=== PATIENT | female | born 1965 | race Caucasian/White ===

== ENCOUNTER 2016-11-17 11:49 | Emergency (ER) | payer MEDICARE, MEDICAID ==
[2016-11-17 12:24] LABS: #Eosinphils 0.2 thou/uL (0.0-0.7); #Lymphocytes 1.1 thou/uL (1.20-3.40); #Monocytes 0.4 thou/uL (0.11-0.59); #Neutrophils 2.7 thou/uL (1.40-6.50); %Basophils 0.5 % (0.0-1.0); %Eosinophils 5.3 % (0.0-10.0); %Lymphocytes 24.9 % (21.0-51.0); %Monocytes 9.7 % (0.0-10.0); Hematocrit 35.2 % (36.0-47.0); Mean Platelet Volume 7.9 fL (7.4-10.4); Red Blood Cell (RBC) Count 4.17 mill/uL (4.20-5.40); White Blood Cell (WBC) Count 4.5 thou/uL (4.8-10.8)
[2016-11-17 12:50] LABS: ALT (SGPT) Less than 7 U/L (8-55); AST (SGOT) 11 U/L (5-34); Alkaline Phosphatase 85 U/L (40-150); Anion Gap 12 mmol/L (10-20); BUN (Urea Nitrogen) 9 mg/dL (9.8-20.1); Bilirubin, Total 0.3 mg/dL (0.2-1.2); CK (CPK) 61 U/L (29-168); Calc. Creatinine Clearance 0 mL/min (70-130); Calcium 8.7 mg/dL (7.8-10.44); Carbon Dioxide 27 mmol/L (22-29); Chloride 103 mmol/L (98-107); Estimated GFR-MDRD 42; Globulin 3.5 g/dL (2.4-3.5)
--- NOTE | 2016-11-17 12:52 | RAD ---
AP VIEW OF THE CHEST: INDICATION: Syncope. COMPARISON: Prior exam dated 09/01/14. FINDINGS: There is slight elevation of the right hemidiaphragm. The heart size is mildly prominent. Pulmonar y vasculature is within normal limits. No airspace consolidation, pleural effusion, or pneumothorax is evident. There is an ACDF now present involving the cervical spine. IMPRESSION: No acute cardiopulmonary abnormality. POS: [facility]
[2016-11-17 12:54] LABS: Troponin I Less than 0.010 ng/mL (< 0.028)
--- NOTE | 2016-11-17 12:54 | RAD ---
THREE VIEWS OF THE LEFT HAND: INDICATION: Left hand pain. FINDINGS: There are scattered subchondral cyst-like abnormalities involving the wrist carpus. There is mild d egenerative change involving the 1st CMC with associated subchondral cyst-like abnormalities in the trapezium as well as the base of the thumb metacarpal. No acute fracture or subluxation is evident. Soft tissues are normal-appearing. IMPRESSION: No acute osseous abnormality. POS: [facility]
== END 2016-11-17 14:26 | disposition home or self-care (01) ==
LOC: ERS 11:49
DX: M79.645 Pain in left finger(s) (principal); W17.89XA Other fall from one level to another, initial encounter
CPT/HCPCS: 36415; 71010; 80053; 82550; 82553; 84484; 85025; 93005; 94760

== ENCOUNTER 2017-04-24 12:10 | Outpatient (CLI) | payer MEDICARE, MEDICAID | END 2017-04-24 12:11 | disposition home or self-care (01) | LOC: BICMAMMO 12:10 | PROVIDERS: ATTEND Family Medicine | DX: Z12.31 Encounter for screening mammogram for malignant neoplasm of breast (principal); N64.89 Other specified disorders of breast; Z80.3 Family history of malignant neoplasm of breast | CPT/HCPCS: 77063; 77067 ==

== ENCOUNTER 2017-05-18 12:53 | Outpatient (CLI) | payer MEDICARE, MEDICAID ==
[2017-05-18] MEDS ORDERED: Gadobenate Dimeglumine 529 MG/1 ML (20ML VIAL) ONE (14:36)
== END 2017-05-18 12:54 | disposition home or self-care (01) ==
LOC: BICMRI 12:53
PROVIDERS: ATTEND Psychiatry & Neurology Neurology
DX: R42 Dizziness and giddiness; M99.83 Other biomechanical lesions of lumbar region; M54.2 Cervicalgia; M47.26 Other spondylosis with radiculopathy, lumbar region
CPT/HCPCS: 70553; 72040; 72110; 72148; A9579

== ENCOUNTER 2017-05-25 15:43 | Outpatient (CLI) | payer MEDICARE, MEDICAID | END 2017-05-25 15:44 | disposition home or self-care (01) | LOC: BICULT 15:43 | PROVIDERS: ATTEND Internal Medicine Nephrology | DX: I12.9 Hypertensive chronic kidney disease with stage 1 through stage 4 chronic kidney disease, or unspecified chronic kidney disease (principal); N18.3 Chronic kidney disease, stage 3 (moderate) | CPT/HCPCS: 76770 ==

== ENCOUNTER 2017-07-01 16:40 | Emergency (ER) | payer MEDICARE, OTHER ==
[~2017-07-01 16:40] MED LIST: ISOVUE-370 76%-LOCM 1 ML ONE
[2017-07-01 18:16] LABS: #Eosinphils 0.3 thou/uL (0.0-0.7); #Lymphocytes 0.9 thou/uL (1.20-3.40); #Monocytes 0.5 thou/uL (0.11-0.59); #Neutrophils 3.5 thou/uL (1.40-6.50); %Basophils 0.8 % (0.0-1.0); %Eosinophils 6.4 % (0.0-10.0); %Lymphocytes 16.7 % (21.0-51.0); %Monocytes 9.4 % (0.0-10.0); %Neutrophils 66.8 % (42.0-75.0); Hemoglobin 10.4 g/dL (12.0-16.0); Mean Corpuscular HGB CONC 30.9 g/dL (32.0-36.0); Mean Corpuscular Hemoglobin 26.3 pg (27.0-31.0); Mean Corpuscular Volume 84.9 fl (81.0-99.0); Platelet Count 257 thou/uL (130-400); RBC Distribution Width 13.2 % (11.5-14.5); Red Blood Cell (RBC) Count 3.96 mill/uL (4.20-5.40); White Blood Cell (WBC) Count 5.2 thou/uL (4.8-10.8)
[2017-07-01 18:37] LABS: ALT (SGPT) 8 U/L (8-55); AST (SGOT) 18 U/L (5-34); Albumin 3.6 g/dL (3.5-5.0); Alkaline Phosphatase 77 U/L (40-150); Anion Gap 11 mmol/L (10-20); BUN (Urea Nitrogen) 13 mg/dL (9.8-20.1); Bilirubin, Total 0.2 mg/dL (0.2-1.2); CK (CPK) 197 U/L (29-168); Calc. Creatinine Clearance 0 mL/min (70-130); Calcium 8.9 mg/dL (7.8-10.44); Carbon Dioxide 28 mmol/L (22-29); Chloride 105 mmol/L (98-107); Estimated GFR-MDRD 39; Globulin 3.3 g/dL (2.4-3.5); Glucose 99 mg/dL (70-105); Lipase 17 U/L (8-78); Magnesium 1.7 mg/dL (1.6-2.6); Potassium 4.1 mmol/L (3.5-5.1); Protein, Total 6.9 g/dL (6.0-8.3); Sodium 140 mmol/L (136-145)
[2017-07-01 18:41] LABS: CKMB 2.5 ng/mL (0-6.6); Troponin I Less than 0.010 ng/mL (< 0.028)
--- NOTE | 2017-07-01 19:24 | ULT ---
LEFT UPPER EXTREMITY VENOUS ULTRASOUND: 07/01/17 HISTORY: Left upper extremity edema. TECHNIQUE: Multiplanar aburto scale and color doppler images were obtained in a left upper extremity venous ultras ound. Spectral analysis of the doppler waveforms were performed. FINDINGS: The left internal jugular vein demonstrates normal compression and flow without evidence of thrombus. The left subclavian vein demonstrates normal flow and augmentation without evidence of thrombus. The left axillary and brachial veins demonstrate normal compression, flow and augmentation without evide nce of thrombus. The venous structures distal to the elbow are unremarkable. The basilic and cephalic veins are patent . IMPRESSION: No evidence of left upper extremity DVT. POS: [facility]
--- NOTE | 2017-07-01 19:29 | RAD ---
PORTABLE CHEST: 07/01/17 HISTORY: Swelling and shortness of breath. COMPARISON: 11/17/16 exam. Heart size is within normal limits for portable technique. There are atherosclerotic changes of the a wilber. There is some increased density over the right base. I am not certain if this is related to ove rlying soft tissue or possibly some atelectasis or infiltrative change. A PA and lateral chest film w ould be helpful in assessment. IMPRESSION: Slight increased density over the right lung base possibly atelectasis or infiltrate versus overlying soft tissue. POS: [facility]
--- NOTE | 2017-07-01 21:16 | CT ---
CT ANGIO OF CHEST PERFORMED WITH INTRAVENOUS CONTRAST ENHANCEMENT WITH 3D RECONSTRUCTIONS: 07/01/17 HISTORY: Shortness of breath. Elevated D-dimer. The lungs are clear of any infiltrative process. There is no pulmonary nodules identified. There is no significant mediastinal or hilar adenopathy. The thoracic aorta is normal in caliber. There is fair pulmonary artery opacification, peripheral emb tanika are not excluded but no CT evidence for pulmonary embolus. The visualized liver parenchyma shows no focal findings. IMPRESSION: No CT evidence of pulmonary embolus. POS: [facility]
[2017-07-01 21:19] LABS: Bilirubin Negative (Negative); Blood, Urine Negative (Negative); Clarity CLEAR (Clear); Glucose, Urine (Dipstick) Negative (Negative); Leukocyte Moderate (Negative); Nitrite Negative (Negative); Protein, Urine (Dipstick) Negative (Neg-Trace); Specific Gravity, Urine 1.016 (1.002-1.036); Urobilinogen 0.2 mg/dL (0.2-1.0)
[2017-07-01 21:21] LABS: Bacteria/HPF None Seen HPF (None Seen); Hyaline Casts/LPF 0-3 HYALINE CAST LPF (0-3 Hyaline); Pathc Cast-AUWi Flag 0.14 (0-2.49); RBC/HPF 0-3 HPF (0-3); Squamous Epithelial 0-3 HPF (0-3)
--- NOTE | 2017-07-01 22:43 | CT ---
CT OF ABDOMEN AND PELVIS PERFORMED WITH INTRAVENOUS CONTRAST ENHANCEMENT: 07/01/17 HISTORY: Abdominal pain and left flank region. COMPARISON: A 03/12/15 CT examination. The lung bases are clear of any infiltrative process. The liver, spleen, pancreas, and gallbladder regions all appear unremarkable. Right and left adrenal glands are normal in appearance. The right kidney is normal in size and appear ance. There is cortical thinning involving the mid and lower pole region of the left kidney and dilat ation to the left renal pelvis and collecting system. The patient reportedly has undergone a previous pyeloplasty. The ureter is nondilated and no ureteral calculus is seen. There is no significant zuri aortic or mesenteric adenopathy. There is a moderate amount of stool present within the colon. CT OF PELVIS PERFORMED WITH CONTRAST ENHANCEMENT: The appendix region appears unremarkable. There is no evidence of adenopathy or mass. No evidence of any significant free fluid. There are arthritic changes of the spine. IMPRESSION: 1. No acute abnormalities to the abdomen or pelvis. 2. Cortical thinning involving the left kidney with prominent left renal pelvis. Patient reporte terri has undergone a previous pyeloplasty on the left. These changes appear fairly similar to previous studies. POS: [facility]
== END 2017-07-01 21:53 | disposition home or self-care (01) ==
LOC: ERS 16:40
DX: N39.0 Urinary tract infection, site not specified (principal); F41.9 Anxiety disorder, unspecified; F31.9 Bipolar disorder, unspecified; M19.90 Unspecified osteoarthritis, unspecified site; Z79.899 Other long term (current) drug therapy; Z87.442 Personal history of urinary calculi
CPT/HCPCS: 71045; 71275; 74177; 80053; 81003; 81015; 82553; 83605; 83690; 83735; 83880; 84484; 85025; 85379; 93005

== ENCOUNTER 2017-07-06 14:19 | Outpatient (CLI) | payer MEDICARE, MEDICAID ==
[~2017-07-06 14:19] MED LIST changes: +Gadobenate Dimeglumine 529 MG/1 ML (20ML VIAL) ONE; -ISOVUE-370 76%-LOCM 1 ML ONE
--- NOTE | 2017-07-06 16:57 | MRI ---
MRI LUMBAR SPINE WITH AND WITHOUT CONTRAST: HISTORY: Chronic neck pain and shoulder pain. Prior cervical spine surgery. COMPARISON: Plain films and CT cervical spine dated May 2015. TECHNIQUE: Multiplanar, multisequential imaging of the cervical spine obtained. Post contrast images were obtai lyn after administering 20 mL of MultiHance IV. FINDINGS: The exam is severely degraded due to motion artifact on all sequences. There are pedicle screws now in place with an anterior plate transfixing the C3, C4, C5, and C6 level s. The cervical vertebrae maintain height and alignment. Artifact from the metallic appliances degr ades evaluation of the spinal canal. Evidence of posterior spondylosis at C3-C4, C4-C5, and C5-C6 ef face the anterior subarachnoid space. No significant cord impingement. No evidence of foraminal oral nosis. At C6-C7, posterior disk bulge and spondylosis efface the anterior subarachnoid space, slightly more pronounced to the left of midline. Mild foraminal encroachment due to uncinate hypertrophy. No abnormal enhancement. Cord appears normal. IMPRESSION: 1. Postoperative change noted with anterior plate and screws at the C3, C4, C5, and C6 levels. Ther e is effacement of the anterior subarachnoid space throughout these levels without significant cord i mpingement of foraminal stenosis. 2. Spondylosis at C6-C7, as described above. POS: [facility]
--- NOTE | 2017-07-06 16:59 | RAD ---
LUMBAR SPINE FOUR VIEWS: 07/06/2017 HISTORY: Chronic back pain. FINDINGS: There are five [id number]-hhy-lyxchzp lumbar-type vertebral bodies. There is slight grade 1 anterolisthesis of L4 on L5.. There is narrowing of the intervertebral disk spaces at all levels of the lumbar spin e. The vertebral body heights are within normal limits. Scattered osteophytes are present. Facet d egenerative changes are seen, predominantly in the lower lumbar spine. No fracture is present. Ther e is no abnormal translation motion seen between the flexion and extension views. IMPRESSION: Multilevel degenerative changes of the lumbar spine with grade 1 anterolisthesis of L4 on L5. POS: [facility]
--- NOTE | 2017-07-06 17:14 | RAD ---
CERVICAL SPINE SIX VIEWS: TECHNIQUE: Lateral views were obtained with neutral flexion and extension positions. FINDINGS: Anterior plate and screws transfix C3, C4, C5, and C6. Interbody implants are present. Posterior sp ondylitic changes are prominent at the C5-C6 and at the C6-C7 levels. No significant listhesis noted with flexion or extension. IMPRESSION: Postoperative and degenerative changes of the cervical spine noted. POS: [facility]
--- NOTE | 2017-07-06 17:16 | CT ---
CT CERVICAL SPINE: HISTORY: Chronic neck and shoulder pain (M54.12 and M54.16). TECHNIQUE: Axial images are obtained with coronal and sagittal reconstructions. FINDINGS: CT images demonstrate ACDF with fusion of the C3, C4, C5, and C6 vertebrae. There are some anterior osteophytes seen at the C6-C7 disk space. The central canal and neural foramen are patent. Some cameron tral canal stenosis is seen due to posterior osteophytes at the C5-C6 and C6-C7 levels, extending int o the spinal canal. Correlation with CT myelography may be of use to further characterize. IMPRESSION: Cervical spine fusion changes with lower cervical region disk degenerative changes, just below the le glenny of the cervical spine fusion. POS: [facility]
== END 2017-07-06 14:20 | disposition home or self-care (01) ==
LOC: SCSMRI 14:19
PROVIDERS: ATTEND Surgery
DX: M47.22 Other spondylosis with radiculopathy, cervical region (principal); M47.26 Other spondylosis with radiculopathy, lumbar region; Z98.1 Arthrodesis status; M43.16 Spondylolisthesis, lumbar region
CPT/HCPCS: 72050; 72120; 72125; 72156; A9579

== ENCOUNTER 2017-07-10 19:00 | Outpatient (CLI) | payer MEDICARE, MEDICAID | END 2017-07-10 19:01 | disposition home or self-care (01) | LOC: SLEEPLAB 19:00 | PROVIDERS: ATTEND Family Medicine | DX: Z02.9 Encounter for administrative examinations, unspecified (principal); G47.33 Obstructive sleep apnea (adult) (pediatric); R09.02 Hypoxemia; R06.83 Snoring; G89.29 Other chronic pain; F32.9 Major depressive disorder, single episode, unspecified; F41.9 Anxiety disorder, unspecified; F20.9 Schizophrenia, unspecified | CPT/HCPCS: 95810 ==

== ENCOUNTER 2017-08-21 14:04 | Outpatient (CLI) | payer MEDICARE, MEDICAID ==
--- NOTE | 2017-08-21 15:27 | RAD ---
TWO VIEW CHEST: HISTORY: Dyspnea. FINDINGS: The lung simmons appear clear. No infiltrate or vascular congestion. Heart and mediastinum unremarka ble. IMPRESSION: No acute abnormality. POS: [facility]
== END 2017-08-21 14:05 | disposition home or self-care (01) ==
LOC: RAD 14:04
PROVIDERS: ATTEND Internal Medicine Pulmonary Disease
DX: R06.00 Dyspnea, unspecified (principal)
CPT/HCPCS: 71046

== ENCOUNTER 2018-02-24 09:55 | Outpatient (CLI) | payer MEDICARE, MEDICAID ==
--- NOTE | 2018-02-24 15:52 | NM ---
TRIPLE PHASE BONE SCAN: History: Left knee pain. Dose: 30.3 mCi Technetium 99M MDP. FINDINGS: Triple phase bone scan of the knee is performed as well as delayed whole body images. No evidence of increased flow is seen. The blood pool images are unremarkable. No definite evidence of areas of increased activity seen in the knees to suggest significant increase d metabolic activity. There is increased activity seen in the left sacrum. This may represent a left sacral lesion or fracture. Correlate with MRI and clinical correlation. The rest of the bone scan who le body images are unremarkable. IMPRESSION: Increased left sacral metabolic activity. This may represent a sacral fracture. Correlate with MRI. POS: [facility]
== END 2018-02-24 09:56 | disposition home or self-care (01) ==
LOC: NM 09:55
PROVIDERS: ATTEND Specialist
DX: M17.11 Unilateral primary osteoarthritis, right knee (principal); T84.84XA Pain due to internal orthopedic prosthetic devices, implants and grafts, initial encounter; R93.7 Abnormal findings on diagnostic imaging of other parts of musculoskeletal system; Z96.651 Presence of right artificial knee joint
CPT/HCPCS: 78315; A9503

== ENCOUNTER 2018-06-25 12:51 | Outpatient (CLI) | payer MEDICARE, MEDICAID ==
--- NOTE | 2018-06-25 16:01 | MMO ---
Bilateral MAMMO Bilat Screen DDI+DEWEY. CLINICAL HISTORY: Patient is 53 years old and is seen for screening. The patient has the following family history of breast cancer: maternal aunt. The patient has no personal history of cancer. VIEWS: The views performed were: bilateral craniocaudal; bilateral craniocaudal with tomosynthesis; bilateral mediolateral oblique; and bilateral mediolateral oblique with tomosynthesis. FILMS COMPARED: The present examination has been compared to prior imaging studies performed at [facility] on 01/02/2014 and 04/24/2017, and at [facility] on 10/29/2011. MAMMOGRAM FINDINGS: There are scattered fibroglandular densities. There are no suspicious masses, suspicious calcifications, or new areas of architectural distortion. IMPRESSION: THERE IS NO MAMMOGRAPHIC EVIDENCE OF MALIGNANCY. A ROUTINE FOLLOW-UP MAMMOGRAM IN 1 YEAR IS RECOMMENDED. THE RESULTS OF THIS EXAM WERE SENT TO THE PATIENT. ACR BI-RADS Category 1 - Negative MAMMOGRAPHY NOTE: 1. A negative mammogram report should not delay a biopsy if a dominant of clinically suspicious mass is present. 2. Approximately 10% to 15% of breast cancers are not detected by mammography. 3. Adenosis and dense breasts may obscure an underlying neoplasm.
== END 2018-06-25 12:52 | disposition home or self-care (01) ==
LOC: BICMAMMO 12:51
PROVIDERS: ATTEND Family Medicine
DX: Z12.31 Encounter for screening mammogram for malignant neoplasm of breast (principal); Z80.3 Family history of malignant neoplasm of breast
CPT/HCPCS: 77063; 77067

== ENCOUNTER 2018-07-05 07:44 | Outpatient (CLI) | payer MEDICARE, MEDICAID ==
[2018-07-05] MEDS ORDERED: Iopamidol 370 76% 100 ML VIAL ONE (09:00)
--- NOTE | 2018-07-05 15:12 | CT ---
CT ABDOMEN AND PELVIS WITH ORAL AND IV CONTRAST: HISTORY: Abdominal pain. COMPARISON: 07/01/2017 FINDINGS: The lung bases are clear. The liver, spleen, pancreas, adrenal glands, and right kidney are normal. Cortical thinning involving the left kidney with changes of pyeloplasty resulting in dilatation of t he left renal pelvis and collecting system again seen. No calculi are seen in the ureters or in the urinary bladder. No hydroureteronephrosis is seen. No free air, free fluid, or lymphadenopathy is noted in the abdomen or pelvis. No calcified gallston es are seen. The small bowel loops are not abnormally dilated. A uterus is present. There is no evidence of aneu rysmal dilatation of the abdominal aorta. There are degenerative changes in the spine. IMPRESSION: Stable examination. No acute process. POS: [facility]
== END 2018-07-05 07:45 | disposition home or self-care (01) ==
LOC: SCSCT 07:44
PROVIDERS: ATTEND Surgery
DX: R10.11 Right upper quadrant pain (principal)
CPT/HCPCS: 74177; 82565

== ENCOUNTER 2019-02-25 09:43 | Outpatient (CLI) | payer MEDICARE, MEDICAID ==
--- NOTE | 2019-02-25 13:55 | NM ---
WHOLE BODY BONE SCAN WITH TRIPLE PHASE IMAGING OF THE KNEES: HISTORY: Right knee replacement in 2013 and left knee replacement in 2017. Pain due to internal orthopedic pro sthetic device/graft. Pain in both knees, right greater than left. No history of malignancy. RADIOPHARMACEUTICAL: Technetium 99m MDP 32.4 millicuries injected intravenously. FINDINGS: No increased blood flow or blood pooling is seen in the knee joints on either side. Delayed images de monstrate mildly increased uptake consistent with postop changes. There are foci of intense uptake in the mandible, likely due to periodontal disease. Increased uptake in the mid thoracic spine corresponds to degenerative changes noted on the CT scan o f the chest dated 07/01/2017. Increased uptake in the left L5-S1 and inferior left SI joint also sidney esponds to degenerative changes noted on the CT scan of the abdomen and pelvis of 01/23/2019. Increased uptake in the shoulders and ankles is consistent with degenerative changes. Tracer excretio n through the kidneys is within normal limits. IMPRESSION: No evidence of infection or loosening in either knee prostheses. POS: [facility]
== END 2019-02-25 09:44 | disposition home or self-care (01) ==
LOC: NM 09:43
PROVIDERS: ATTEND Specialist
DX: T84.84XA Pain due to internal orthopedic prosthetic devices, implants and grafts, initial encounter (principal)
CPT/HCPCS: 78315; A9503

== ENCOUNTER 2019-08-16 07:47 | Outpatient (CLI) | payer MEDICARE, MEDICAID ==
--- NOTE | 2019-08-16 09:14 | MRI ---
EXAM: MR of the right thumb without IV contrast DATE: 08/16/2019 INDICATION: History of right thumb dislocation and pain for many months. COMPARISON: None. FINDING: There is a subchondral cystlike abnormality involving the dorsal aspect of the thumb metaca rpal base. The capsular ligaments at the thumb metacarpal base appear intact. The collateral ligaments of the thumb MCP joint and IP joint appear intact. There is some slight increased T2 signal seen involving the proximal attachment of the ulnar collateral ligament to the thumb metacarpal head. The extensor and flexor tendons to the right thumb appear intact. The abductor pollicis tendon appears within normal limits. There is some soft tissue swelling of the dorsal aspect of the hand which is nonspecific. IMPRESSION: 1. Grade 1 sprain involving the proximal attachment of the ulnar collateral ligament of the thumb met acarpal phalangeal joint. 2. Mild first CMC osteoarthrosis.
== END 2019-08-16 07:48 | disposition home or self-care (01) ==
LOC: SCSMRI 07:47
PROVIDERS: ATTEND Orthopaedic Surgery Hand Surgery
DX: S63.104A Unspecified dislocation of right thumb, initial encounter (principal); S53.31XA Traumatic rupture of right ulnar collateral ligament, initial encounter; S63.641A Sprain of metacarpophalangeal joint of right thumb, initial encounter; M18.11 Unilateral primary osteoarthritis of first carpometacarpal joint, right hand

== ENCOUNTER 2019-12-13 09:00 | Outpatient (CLI) | payer MEDICARE, MEDICAID, OTHER ==
[2019-12-13 11:34] LABS: #Basophils 0.1 thou/uL (0.0-0.2); #Eosinphils 0.3 thou/uL (0.0-0.7); #Lymphocytes 1.4 thou/uL (1.20-3.40); #Monocytes 0.7 thou/uL (0.11-0.59); #Neutrophils 4.6 thou/uL (1.40-6.50); %Basophils 0.8 % (0.0-1.0); %Eosinophils 4.8 % (0.0-10.0); %Monocytes 9.6 % (0.0-10.0); %Neutrophils 64.9 % (42.0-75.0); Mean Corpuscular HGB CONC 31.3 g/dL (32.0-36.0); Mean Corpuscular Hemoglobin 29.1 pg (27.0-31.0); Mean Corpuscular Volume 92.9 fL (78.0-98.0); Mean Platelet Volume 8.2 fL (7.4-10.4); Platelet Count 277 thou/uL (130-400); RBC Distribution Width 13.5 % (11.5-14.5); Red Blood Cell (RBC) Count 4.81 mill/uL (4.20-5.40); White Blood Cell (WBC) Count 7.1 thou/uL (4.8-10.8)
[2019-12-13 11:53] LABS: Bilirubin Negative (Negative); Blood, Urine Negative (Negative); Calcium Oxalate Crystals 4+ HPF (None Seen); Clarity Turbid (Clear); Glucose, Urine (Dipstick) Normal (Negative); Ketone, Urine Trace mg/dL (Negative); Leukocyte 500 Leu/uL (Negative); Nitrite Negative (Negative); Protein, Urine (Dipstick) 50 mg/dL (Neg-Trace); Renal Epithelial 0-3 HPF (None Seen); Specific Gravity, Urine 1.036 (1.002-1.036); Transitional Epithelial 0-3 HPF (None Seen); Urobilinogen Normal mg/dL (Less than 2); WBC/HPF Greater than 50 HPF (0-3); pH, Urine 5.5 (5.0-9.0)
[2019-12-13 12:00] LABS: Bacteria/HPF None Seen HPF (None Seen)
[2019-12-13 12:43] LABS: Anion Gap 17 mmol/L (10-20); BUN (Urea Nitrogen) 15 mg/dL (9.8-20.1); Calc. Creatinine Clearance 0 mL/min (70-130); Calcium 10.6 mg/dL (7.8-10.44); Carbon Dioxide 24 mmol/L (22-29); Chloride 101 mmol/L (98-107); Estimated GFR-MDRD 34; Glucose 110 mg/dL (70-105); Potassium 3.8 mmol/L (3.5-5.1); Sodium 138 mmol/L (136-145)
--- NOTE | 2019-12-13 15:02 | EKG ---
Test Reason : Blood Pressure : / mmHG Vent. Rate : 086 BPM Atrial Rate : 086 BPM P-R Int : 148 ms QRS Dur : 090 ms QT Int : 340 ms P-R-T Axes : 030 060 088 degrees QTc Int : 406 ms Normal sinus rhythm Normal ECG No previous ECGs available Confirmed by TABITHA MEJÍA (2) on 12/13/2019 3:01:44 PM Referred By: MARIANELA Confirmed By:TABITHA MEJÍA
[2019-12-13 17:29] LABS: SARS-CoV-2 MS2 Positive; SARS-CoV-2 N Gene Negative; SARS-CoV-2 S Gene Negative; SARS-CoV-2 by NAA Not Detected (NotDetected); SARS-CoV-2 orf1ab Negative
== END 2019-12-13 09:01 | disposition home or self-care (01) ==
LOC: LABBT 09:00
PROVIDERS: ATTEND Orthopaedic Surgery Hand Surgery
DX: Z01.818 Encounter for other preprocedural examination (principal); Z20.828 Contact with and (suspected) exposure to other viral communicable diseases; M18.11 Unilateral primary osteoarthritis of first carpometacarpal joint, right hand
CPT/HCPCS: 80048; 81001; 85025; 93005; U0003; 87635; 93010

== ENCOUNTER 2019-12-16 08:45 | Day surgery (SDC) | payer MEDICARE, MEDICAID ==
[2019-12-15 14:46] VITALS: BMI 44.6
[2019-12-16] MEDS ORDERED: PHENYLEPHRINE-NS 100 MCG/ML 10 ML SYRINGE ONE (10:09)
[2019-12-16] MEDS ORDERED: Lidocaine 1% PF 5 ML VIAL ONE (10:09)
[2019-12-16] MEDS ORDERED: Dexamethasone 20 MG/5 ML VIAL ONE (10:09)
[2019-12-16] MEDS ORDERED: Ondansetron PF 4 MG/2 ML Vial ONE (10:09)
[2019-12-16] MEDS ORDERED: PROPOFOL 200 MG/20 ML VIAL ONE (10:09)
[2019-12-16] MEDS ORDERED: Bupivacaine HCl 0.5%/Epinephrine 1:200,000/PF 30 ml Vial ONE (10:09)
[2019-12-16] MEDS ORDERED: Glycopyrrolate 0.2 MG/ML 5 ML SYRINGE ONE (10:09)
[2019-12-16] MEDS ORDERED: EPHEDRINE 25 MG/5 ML SYRINGE ONE (10:09)
[2019-12-16] MEDS ORDERED: Ketorolac Tromethamine 30 MG/ML VIAL ONE (10:09)
[2019-12-16] MEDS ORDERED: Midazolam HCl 2 mg/2 ml Vial ONE (10:37)
[2019-12-16] MEDS ORDERED: Fentanyl 100 MCG/2 ML VIAL ONE ×4 (10:37→15:28)
[2019-12-16 12:01] LABS: Bacteria/HPF None Seen HPF (None Seen); Bilirubin Negative (Negative); Blood, Urine Negative (Negative); Clarity Clear (Clear); Glucose, Urine (Dipstick) Normal (Negative); Ketone, Urine Negative (Negative); Leukocyte 25 Leu/uL (Negative); Nitrite Negative (Negative); Protein, Urine (Dipstick) 50 mg/dL (Neg-Trace); RBC/HPF 0-3 HPF (0-3); Specific Gravity, Urine 1.038 (1.002-1.036); Squamous Epithelial 0-3 HPF (0-3); Urobilinogen Normal mg/dL (Less than 2); WBC/HPF 0-3 HPF (0-3)
[2019-12-16] MEDS ORDERED: Neomycin-Polymyxin 1 ML AMP ONE (12:18)
[2019-12-16] MEDS ORDERED: Bacitracin Zinc Ointment 30 gm TUBE ONE (12:18)
[2019-12-16] MEDS ORDERED: Bupivacaine PF 0.5% 30 ML VIAL ONE (12:18)
[2019-12-16] MEDS ORDERED: HYDROmorphone 2 MG/ML VIAL ONE (14:08)
--- NOTE | 2019-12-16 14:46 | RAD ---
Right wrist 2 views intraoperative fluoroscopy HISTORY: Intraoperative fluoroscopy was provided for operative fixation as performed by Dr. Guevara. 2 spot fluoroscopic images show long K wire to transfix the bases of the first and second metacarpals. Trapezium not visualized. Perhaps a faint prosthesis present.
--- NOTE | 2019-12-18 09:22 | OP ---
DATE OF PROCEDURE: 12/16/2019 PREOPERATIVE DIAGNOSIS: Right thumb carpometacarpal osteoarthritis. POSTOPERATIVE DIAGNOSIS: Right thumb carpometacarpal osteoarthritis. FINDINGS: Greater than 80% complete loss of chondral surface with osteophytes on both sides of the joint. PROCEDURE PERFORMED: 1. Right thumb CMC ligament replacement, tendon position. 2. Flexor carpi radialis transfer, right first to second metacarpal. 3. C-arm supervision. SPECIMEN REMOVED: Trapezium, but not sent to the lab. ESTIMATED BLOOD LOSS: 20 mL. TOURNIQUET TIME: 83 minutes. DESCRIPTION OF PROCEDURE: After successful general endotracheal anesthesia, the limb was prepped and draped. The patient also had a block, which was before the procedure began. Thus, we did not give local Marcaine. With time-out completed, the limb was exsanguinated, tourniquet was inflated to 250 mmHg pressure, made a curvilinear incision beginning retirement between the thumb MP joint and CMC and curved along the volar wrist flexion crease to the level of the radial aspect of the FCR tendon. We carried this through skin and subcutaneous tissue and developed nerves plane, sparing all superficial radial nerve branches. We then identified the interval between the extensor brevis and the abductor pollicis longus, developed this, and then made arthrotomy. We preserved the joint flaps and into the fascia of the muscles. 360 degrees circumferentially beginning radially, dissected the trapezium free, found the flexor carpi radialis tendon and freed it from the palmar aspect completely, then released the scaphotrapezial joint as well as the trapezium and trapezoid. Then, we elevated out the completely denuded trapezium, saw the chondral loss as listed above, placed a heavy deep 3-0 Prolene in the palmar deep capsule for later suturing of the FCR remnant and prepared for . The thumb was rotated so that the nailbed was now parallel with the palm, we found the lateral border of the base of the thumb at 12 mm proximal to the articular surface. After removing all chondral osteophytes, we drilled a cannulated guidewire to the junction of the chondral and subchondral bone, then drilled this with first a 2.7 drill bit and then a 3.5 drill bit. We used a curette to expand the hole. We irrigated the area. We then turned our attention to the harvest of flexor carpi radialis tendon and we made 2 zigzag Ignacio incisions each approximately 2 cm, carried through the skin and subcutaneous tissue at a point from the volar wrist flexion crease retirement to the muscle tendon junction, made a third way to muscular tendon junction, made a first identification of the FCR and we made a second identification at the musculotendinous junction. Here, we released it after identifying, pulled it into the first wound, then dissected the wound and then pulled into the first wound. At which time, we denuded of all this muscle. We easily passed it through the tunnel, holding that with a curved Magallanes tendon Passer, held in appropriate tension, reduced the joint and pinned it x1 with a 0.045 K-wire. We then tied the suture down using standard technique with a Elgin needle with a 3-0 Prolene through an anchovy, we weaved the portion that was tied down deep in the capsule. We released the tourniquet. Hemostasis was obtained. We closed the capsule and the fascia back to the metacarpal base using interrupted 2-0 Vicryl undyed. Then, we closed subcutaneous tissue with hemostasis excellent, and all three wounds using a running 3-0 Monocryl. We used a 4-0 nylon to close the epidermis. Bulky dressing was applied along with a thumb spica splint. The patient left the operating room without evidence of anesthetic or operative complication. Job ID: [id number]
== END 2019-12-16 18:10 | disposition home or self-care (01) ==
LOC: SDC 08:45
PROVIDERS: ATTEND Orthopaedic Surgery Hand Surgery
PROC: 0LX70ZZ Transfer Right Hand Tendon, Open Approach (ICD-10-PCS; principal; 2019-12-16)
PROC: 0LU707Z Supplement Right Hand Tendon with Autologous Tissue Substitute, Open Approach (ICD-10-PCS; 2019-12-16)
PROC: 0RRS07Z Replacement of Right Carpometacarpal Joint with Autologous Tissue Substitute, Open Approach (ICD-10-PCS; 2019-12-16)
PROC: 3E0T3BZ Introduction of Anesthetic Agent into Peripheral Nerves and Plexi, Percutaneous Approach (ICD-10-PCS; 2019-12-16)
DX: M18.11 Unilateral primary osteoarthritis of first carpometacarpal joint, right hand (principal); G89.29 Other chronic pain; M54.9 Dorsalgia, unspecified; F41.9 Anxiety disorder, unspecified; F20.9 Schizophrenia, unspecified; F31.9 Bipolar disorder, unspecified; E66.01 Morbid (severe) obesity due to excess calories; Z68.41 Body mass index [BMI] 40.0-44.9, adult; Z79.82 Long term (current) use of aspirin; Z79.899 Other long term (current) drug therapy; Z87.891 Personal history of nicotine dependence; Z88.5 Allergy status to narcotic agent
CPT/HCPCS: 25310; 25447; 64415; 73100; 76000; 81001; C1713; J0690; J1100; J1170; J1885; J2250; J2405; J2704; J3010; S0020

== ENCOUNTER 2020-04-23 08:52 | Outpatient (CLI) | payer MEDICARE, MEDICAID ==
--- NOTE | 2020-04-23 12:20 | MRI ---
MRI LUMBAR SPINE NONCONTRAST: MRI lumbar spine noncontrast: HISTORY: Lumbar spondylosis. Low back pain, for many years. COMPARISON: None. FINDINGS: There is T1 marrow signal hypointensity with associated T2 marrow signal hypointensity in absence of STIR hyperintensity involving the L2 and L3 vertebral bodies. Sclerosis is favored. There are type II Modic changes at L4-L5 and L5-S1. There are type I Modic changes at T10-T11. No significant STIR hyperintensity to suggest ligamentous injury or vertebral body edema from fractur e. Appropriate signal intensity visualized paraspinal muscles and solid organs. Conus medullaris terminates at the inferior aspect of T12. Based on the sagittal images, there is mild central canal stenosis at T10-T11. No significant stenosi s at T11-T12. T12-L1:Adequate disc hydration. No significant central canal stenosis or significant neural foraminal narrowing. L1-L2:Desiccation with mild loss of disc space height. Broad-based disc bulge, ligament flavum thicke arie and facet hypertrophy result in mild central canal stenosis. Moderate bilateral neural femoral narrowing. L2-L3:Desiccation with moderate loss of disc space height. Broad-based disc bulge, ligament flavum th ickening and facet hypertrophy result in moderate to severe central canal stenosis. Moderate bilateral neural foraminal narrowing. L3-L4:Desiccation with moderate loss of disc space height. Broad-based disc bulge results in mild cameron tral canal stenosis. Encroachment upon bilateral subarticular zones without obscuration of either traversing L4 nerve root. Mild right and moderate left neural foraminal narrowing. L4-L5:Desiccation with moderate loss of disc space height. 3.2 mm of anterolisthesis of L3 upon L4. B road-based disc bulge, ligament flavum thickening and facet hypertrophy result in mild central canal stenosis. There is moderate bilateral facet hypertrophy with fluid in both facet joints. Modera te to severe right and moderate left neural foraminal narrowing. L5-S1:Desiccation with severe loss of disc space height. Broad-based disc bulge abuts the thecal sac. There is bilateral facet hypertrophy. No significant central canal stenosis. Mild right and moderate left foraminal narrowing. IMPRESSION: Multilevel degenerative changes lumbar spine as detailed above. Transcribed Date/Time: 04/23/2020 1:22 PM
== END 2020-04-23 08:53 | disposition home or self-care (01) ==
LOC: BICMRI 08:52
DX: M47.816 Spondylosis without myelopathy or radiculopathy, lumbar region (principal)
CPT/HCPCS: 72148

== ENCOUNTER 2020-08-28 13:25 | Emergency (ER) | payer MEDICARE, MEDICAID ==
[~2020-08-28 13:25] MED LIST changes: -Gadobenate Dimeglumine 529 MG/1 ML (20ML VIAL) ONE; +Iopamidol-370 76% 500 ML 1 ML ONE
[2020-08-28 13:59] LABS: #Eosinphils 0.3 thou/uL (0.0-0.7); #Lymphocytes 1.4 thou/uL (1.20-3.40); #Monocytes 0.7 thou/uL (0.11-0.59); #Neutrophils 5.2 thou/uL (1.40-6.50); %Basophils 0.1 % (0.0-1.0); %Eosinophils 3.4 % (0.0-10.0); %Lymphocytes 18.9 % (21.0-51.0); %Monocytes 8.6 % (0.0-10.0); %Neutrophils 69.1 % (42.0-75.0); Hemoglobin 12.6 g/dL (12.0-16.0); Mean Corpuscular HGB CONC 31.2 g/dL (32.0-36.0); Mean Corpuscular Hemoglobin 28.5 pg (27.0-31.0); Mean Corpuscular Volume 91.5 fL (78.0-98.0); Mean Platelet Volume 7.3 fL (7.4-10.4); Platelet Count 297 thou/uL (130-400); RBC Distribution Width 13.1 % (11.5-14.5); Red Blood Cell (RBC) Count 4.41 mill/uL (4.20-5.40); White Blood Cell (WBC) Count 7.6 thou/uL (4.8-10.8)
[2020-08-28] MEDS ORDERED: Nitroglycerin 0.4 MG TAB 1 EACH ONE (14:08)
[2020-08-28] MEDS ORDERED: Aspirin Chewable 81 MG TAB ONE (14:08)
[2020-08-28 14:23] LABS: ALT (SGPT) 11 U/L (8-55); AST (SGOT) 21 U/L (5-34); Alkaline Phosphatase 67 U/L (40-110); Anion Gap 16 mmol/L (10-20); BUN (Urea Nitrogen) 6 mg/dL (9.8-20.1); Bilirubin, Total 0.4 mg/dL (0.2-1.2); Calc. Creatinine Clearance 0 mL/min (70-130); Calcium 9.5 mg/dL (7.8-10.44); Carbon Dioxide 27 mmol/L (22-29); Chloride 97 mmol/L (98-107); Globulin 3.6 g/dL (2.4-3.5); Glucose 108 mg/dL (70-105); Potassium 3.7 mmol/L (3.5-5.1); Protein, Total 7.6 g/dL (6.0-8.3); Sodium 136 mmol/L (136-145)
[2020-08-28] MEDS ORDERED: HYDROcodone/Acetaminophen 5/325 mg Tablet ONE (15:49)
== END 2020-08-28 18:30 | disposition home or self-care (01) ==
LOC: ERS 13:25
DX: R07.89 Other chest pain (principal); M19.90 Unspecified osteoarthritis, unspecified site; Z87.442 Personal history of urinary calculi
CPT/HCPCS: 36415; 71045; 71275; 80053; 83880; 84484; 85025; 85379; 93005; Q9967

== ENCOUNTER 2020-09-27 14:51 | Inpatient (IN) | payer MEDICARE, MEDICAID ==
[2020-09-27 15:47] LABS: #Eosinphils 0.1 thou/uL (0.0-0.7); #Lymphocytes 0.5 thou/uL (1.20-3.40); #Monocytes 0.6 thou/uL (0.11-0.59); #Neutrophils 3.8 thou/uL (1.40-6.50); %Eosinophils 1.7 % (0.0-10.0); %Lymphocytes 9.1 % (21.0-51.0); %Monocytes 11.9 % (0.0-10.0); %Neutrophils 77.3 % (42.0-75.0); Hemoglobin 12.4 g/dL (12.0-16.0); Mean Corpuscular HGB CONC 32.3 g/dL (32.0-36.0); Mean Corpuscular Hemoglobin 29.2 pg (27.0-31.0); Mean Corpuscular Volume 90.5 fL (78.0-98.0); Mean Platelet Volume 7.5 fL (7.4-10.4); Platelet Count 193 thou/uL (130-400); RBC Distribution Width 13.3 % (11.5-14.5); Red Blood Cell (RBC) Count 4.26 mill/uL (4.20-5.40); White Blood Cell (WBC) Count 4.9 thou/uL (4.8-10.8)
[2020-09-27 16:07] LABS: ALT (SGPT) 10 U/L (8-55); AST (SGOT) 17 U/L (5-34); Albumin 4.3 g/dL (3.5-5.0); Alkaline Phosphatase 75 U/L (40-110); Anion Gap 13 mmol/L (10-20); BUN (Urea Nitrogen) 7 mg/dL (9.8-20.1); Bilirubin, Total 0.3 mg/dL (0.2-1.2); Calc. Creatinine Clearance 0 mL/min (70-130); Calcium 9.5 mg/dL (7.8-10.44); Carbon Dioxide 32 mmol/L (22-29); Chloride 100 mmol/L (98-107); Globulin 3.3 g/dL (2.4-3.5); Glucose 125 mg/dL (70-105); Potassium 3.5 mmol/L (3.5-5.1); Protein, Total 7.6 g/dL (6.0-8.3); Sodium 141 mmol/L (136-145)
[2020-09-27 17:33] LABS: SARS-CoV-2 NAA Rapid Test DETECTED (NotDetected)
[2020-09-27] MEDS ORDERED: Dexamethasone 4 mg/ml Vial ONE (18:37)
[2020-09-27 18:54] LABS: Bilirubin Negative (Negative); Blood, Urine Negative (Negative); Clarity Clear (Clear); Glucose, Urine (Dipstick) Normal (Negative); Ketone, Urine Negative (Negative); Leukocyte Negative Leu/uL (Negative); Nitrite Negative (Negative); Protein, Urine (Dipstick) 10 mg/dL (Neg-Trace); Specific Gravity, Urine 1.048 (1.002-1.036); Urobilinogen Normal mg/dL (Less than 2)
[2020-09-27] MEDS ORDERED: Acetaminophen 325 MG TAB PO PRN (19:02)
[2020-09-27] MEDS ORDERED: Ondansetron ODT 4 MG TAB PO PRN (19:02)
[2020-09-27] MEDS ORDERED: Ondansetron PF 4 MG/2 ML Vial IVP PRN (19:02)
[2020-09-27] MEDS ORDERED: Albuterol Sulfate 1.25 MG/3 ML NEB NEB PRN (20:35)
[2020-09-27] MEDS ORDERED: guaiFENesin 200 MG TAB PO PRN (20:35)
[2020-09-27] MEDS ORDERED: Benzonatate 100 MG CAP PO PRN (20:35)
[2020-09-27] MEDS ORDERED: Enoxaparin Sodium 40 MG/0.4 ML SYRINGE SC SCH (21:00)
[2020-09-27] MEDS ORDERED: Enoxaparin Sodium 60 MG/0.6 ML SYRINGE SC SCH (22:15)
[2020-09-27] MEDS ORDERED: Pharmacy to Dose REMDESIVIR IVPB PRN (22:16)
[2020-09-27] MEDS ORDERED: Dicyclomine 10 MG CAP PO SCH (23:15)
[2020-09-27] MEDS: HYDROcodone/Acetaminophen 10/325 mg Tablet PO PRN (23:19)
[2020-09-27] MEDS: Lactated Ringer's 1,000 ML IV SCH (23:23)
[2020-09-28 00:27] VITALS: BMI 42.5
[2020-09-28 06:07] LABS: #Lymphocytes 0.5 thou/uL (1.20-3.40); #Monocytes 0.2 thou/uL (0.11-0.59); #Neutrophils 2.6 thou/uL (1.40-6.50); %Eosinophils 0.5 % (0.0-10.0); %Lymphocytes 14.2 % (21.0-51.0); %Monocytes 6.1 % (0.0-10.0); %Neutrophils 79.2 % (42.0-75.0); Hemoglobin 12.4 g/dL (12.0-16.0); Mean Corpuscular HGB CONC 32.5 g/dL (32.0-36.0); Mean Corpuscular Volume 89.1 fL (78.0-98.0); Mean Platelet Volume 7.8 fL (7.4-10.4); Platelet Count 168 thou/uL (130-400); Red Blood Cell (RBC) Count 4.27 mill/uL (4.20-5.40); White Blood Cell (WBC) Count 3.2 thou/uL (4.8-10.8)
[2020-09-28 06:29] LABS: ALT (SGPT) 11 U/L (8-55); AST (SGOT) 22 U/L (5-34); Albumin 3.9 g/dL (3.5-5.0); Alkaline Phosphatase 65 U/L (40-110); Anion Gap 13 mmol/L (10-20); BUN (Urea Nitrogen) 8 mg/dL (9.8-20.1); Bilirubin, Total 0.3 mg/dL (0.2-1.2); Calc. Creatinine Clearance 116 mL/min (70-130); Calcium 9.3 mg/dL (7.8-10.44); Carbon Dioxide 25 mmol/L (22-29); Chloride 100 mmol/L (98-107); Globulin 3.6 g/dL (2.4-3.5); Glucose 114 mg/dL (70-105); Protein, Total 7.5 g/dL (6.0-8.3); Sodium 134 mmol/L (136-145)
[2020-09-28] MEDS ORDERED: Albuterol 200 PUFF (6.7GM INHALER) INH PRN (07:06)
[2020-09-28] MEDS: Aspirin 81 mg Enteric Coated Tablet PO SCH (08:46)
[2020-09-28] MEDS: Amlodipine 10 MG TAB PO SCH (08:46)
[2020-09-28] MEDS: Gabapentin 400 MG CAP PO SCH ×3 (08:47→20:30)
[2020-09-28] MEDS: Dicyclomine 10 MG CAP PO SCH ×4 (08:47→20:28)
[2020-09-28] MEDS: DULoxetine 60 MG CAP PO SCH (08:47)
[2020-09-28] MEDS: Methocarbamol 500 MG TAB PO SCH ×2 (08:48→20:29)
[2020-09-28] MEDS: Lactated Ringer's 1,000 ML IV SCH ×3 (08:53→20:28)
[2020-09-28] MEDS ORDERED: Enoxaparin Sodium 60 MG/0.6 ML SYRINGE SC SCH (09:00)
[2020-09-28] MEDS: HYDROcodone/Acetaminophen 10/325 mg Tablet PO PRN ×2 (09:10→16:04)
[2020-09-28] MEDS ORDERED: REMDESIVIR 200 MG in Sodium Chloride 0.9% 250 ML 210 ML IV SCH (11:00)
[2020-09-28] MEDS: Dexamethasone 6 MG in Sodium Chloride 0.9% 50 ML IVPB SCH (11:25)
[2020-09-28 13:15] LABS: Prothrombin Time 13.3 sec (12.0-14.7)
[2020-09-28] MEDS ORDERED: Valbenazine Tosylate [Ingrezza] 40 MG Capsule PO SCH (21:00)
[2020-09-28] MEDS ORDERED: traZODone HCl 50 MG TAB PO SCH (21:00)
[2020-09-28] MEDS ORDERED: rOPINIRole HCl 1 MG TAB PO SCH (21:00)
[2020-09-29] MEDS: Lactated Ringer's 1,000 ML IV SCH (04:08)
[2020-09-29 06:36] LABS: Hemoglobin 12.6 g/dL (12.0-16.0); Mean Corpuscular Hemoglobin 29.4 pg (27.0-31.0); Mean Corpuscular Volume 89.1 fL (78.0-98.0); Mean Platelet Volume 8.4 fL (7.4-10.4); Platelet Count 185 thou/uL (130-400); RBC Distribution Width 13.3 % (11.5-14.5); Red Blood Cell (RBC) Count 4.28 mill/uL (4.20-5.40)
[2020-09-29 06:37] LABS: Band 9 % (5-11); Lymphocytes 19 % (21-51); MDiff Complete? YES; Monocytes 19 % (0-10); Neutrophil 53 % (42-75); Platelet Morphology Comment Appears Adequate
[2020-09-29 06:38] LABS: ALT (SGPT) 19 U/L (8-55); AST (SGOT) 54 U/L (5-34); Albumin 3.7 g/dL (3.5-5.0); Alkaline Phosphatase 68 U/L (40-110); Anion Gap 14 mmol/L (10-20); BUN (Urea Nitrogen) 16 mg/dL (9.8-20.1); Bilirubin, Total 0.2 mg/dL (0.2-1.2); Calc. Creatinine Clearance 120 mL/min (70-130); Calcium 9.2 mg/dL (7.8-10.44); Carbon Dioxide 26 mmol/L (22-29); Chloride 104 mmol/L (98-107); Globulin 3.4 g/dL (2.4-3.5); Glucose 104 mg/dL (70-105); Potassium 3.6 mmol/L (3.5-5.1); Protein, Total 7.1 g/dL (6.0-8.3); Sodium 140 mmol/L (136-145)
[2020-09-29] MEDS: Methocarbamol 500 MG TAB PO SCH (08:44)
[2020-09-29] MEDS: Dexamethasone 6 MG in Sodium Chloride 0.9% 50 ML IVPB SCH (08:44)
[2020-09-29] MEDS: DULoxetine 60 MG CAP PO SCH (08:45)
[2020-09-29] MEDS: Gabapentin 400 MG CAP PO SCH (08:45)
[2020-09-29] MEDS: Aspirin 81 mg Enteric Coated Tablet PO SCH (08:45)
[2020-09-29] MEDS: Amlodipine 10 MG TAB PO SCH (08:46)
[2020-09-29] MEDS: Dicyclomine 10 MG CAP PO SCH ×2 (08:46→13:04)
[2020-09-29] MEDS ORDERED: Enoxaparin Sodium 60 MG/0.6 ML SYRINGE SC SCH (09:00)
[2020-09-29] MEDS ORDERED: REMDESIVIR 100 MG in Sodium Chloride 0.9% 250 ML 230 ML IV SCH (12:00)
[2020-09-29 13:53] VITALS: BP 129/94; TEMP 98.2
[2020-09-30] MEDS ORDERED: Dexamethasone 4 MG TAB PO SCH (08:00)
== END 2020-09-29 15:53 | disposition home or self-care (01) | DRG 177 ==
LOC: ERS 14:51 → T4-A 18:20
PROVIDERS: ADMIT Student in an Organized Health Care Education/Training Program; ATTEND Student in an Organized Health Care Education/Training Program
PROC: 8E0ZXY6 Isolation (ICD-10-PCS; 2020-09-27)
PROC: XW033E5 Introduction of Remdesivir Anti-infective into Peripheral Vein, Percutaneous Approach, New Technology Group 5 (ICD-10-PCS; principal; 2020-09-28)
DX: U07.1 COVID-19 (principal); J12.82 Pneumonia due to coronavirus disease 2019; J96.01 Acute respiratory failure with hypoxia; Z68.41 Body mass index [BMI] 40.0-44.9, adult; J45.909 Unspecified asthma, uncomplicated; N18.31 Chronic kidney disease, stage 3a; I12.9 Hypertensive chronic kidney disease with stage 1 through stage 4 chronic kidney disease, or unspecified chronic kidney disease; F20.9 Schizophrenia, unspecified; G24.01 Drug induced subacute dyskinesia; E66.01 Morbid (severe) obesity due to excess calories; K21.9 Gastro-esophageal reflux disease without esophagitis; G89.29 Other chronic pain; G25.71 Drug induced akathisia; M47.812 Spondylosis without myelopathy or radiculopathy, cervical region; Z28.21 Immunization not carried out because of patient refusal; Z88.5 Allergy status to narcotic agent; Z79.899 Other long term (current) drug therapy; Z79.891 Long term (current) use of opiate analgesic; Z86.19 Personal history of other infectious and parasitic diseases; Z82.49 Family history of ischemic heart disease and other diseases of the circulatory system; Z83.49 Family history of other endocrine, nutritional and metabolic diseases; Z80.3 Family history of malignant neoplasm of breast; Z80.49 Family history of malignant neoplasm of other genital organs; Z80.0 Family history of malignant neoplasm of digestive organs; Z98.1 Arthrodesis status; Z79.82 Long term (current) use of aspirin
CPT/HCPCS: 0240U; 36415; 71045; 71275; 74177; 80053; 81003; 82728; 83605; 83880; 84145; 84484; 85025; 85379; 85610; 86140; 87040; 87086; 93005; 96374; J1100; J1650; J7050; Q9967

== ENCOUNTER 2020-10-06 10:40 | Inpatient (IN) | payer MEDICARE, MEDICAID, OTHER ==
[2020-10-06 11:11] LABS: #Lymphocytes 0.8 thou/uL (1.20-3.40); #Monocytes 0.5 thou/uL (0.11-0.59); #Neutrophils 5.1 thou/uL (1.40-6.50); %Basophils 0.4 % (0.0-1.0); %Eosinophils 0.2 % (0.0-10.0); %Lymphocytes 12.9 % (21.0-51.0); %Monocytes 7.8 % (0.0-10.0); %Neutrophils 78.7 % (42.0-75.0); Hemoglobin 13.6 g/dL (12.0-16.0); Mean Corpuscular Hemoglobin 29.1 pg (27.0-31.0); Mean Corpuscular Volume 88.2 fL (78.0-98.0); Mean Platelet Volume 8.6 fL (7.4-10.4); Platelet Count 144 thou/uL (130-400); RBC Distribution Width 13.5 % (11.5-14.5); Red Blood Cell (RBC) Count 4.66 mill/uL (4.20-5.40); White Blood Cell (WBC) Count 6.5 thou/uL (4.8-10.8)
[2020-10-06] MEDS ORDERED: Propofol 1,000 MG/100 ML VIAL IV ONE ×2 (11:12→14:45)
[2020-10-06 11:19] LABS: Actual Bicarbonate (HCO3a) 22.6 mEq/L (22-28); Analyzer IN Cardio ER; Base Excess (BEa) -1.5 mEq/L (-2.0 to +3.0); CO2 Tension 36.1 mmHg (35.0-45.0); Calcium, Ionized (arterial) 1.08 mmol/L (1.12-1.30); Carboxyhemoglobin (COHb) 0.7 gm% (0.0-3.0); Hemoglobin (Hb) 13.7 g/dL (12.0-16.0); Potassium - ABG Lab 3.08 mmol/L (3.70-5.30); pH, Arterial 7.41 (7.35-7.45)
[2020-10-06 11:20] LABS: Puncture Site LRA
[2020-10-06 11:23] LABS: ALV-art Gradient 612.875 mmHg (0-20)
[2020-10-06 11:24] LABS: ALT (SGPT) 17 U/L (8-55); AST (SGOT) 25 U/L (5-34); Albumin 3.6 g/dL (3.5-5.0); Alkaline Phosphatase 64 U/L (40-110); Anion Gap 12 mmol/L (10-20); BUN (Urea Nitrogen) 16 mg/dL (9.8-20.1); Bilirubin, Total 0.4 mg/dL (0.2-1.2); Calc. Creatinine Clearance 0 mL/min (70-130); Calcium 8.6 mg/dL (7.8-10.44); Carbon Dioxide 27 mmol/L (22-29); Chloride 101 mmol/L (98-107); Globulin 3.8 g/dL (2.4-3.5); Glucose 130 mg/dL (70-105); Potassium 3.1 mmol/L (3.5-5.1); Protein, Total 7.4 g/dL (6.0-8.3); Sodium 137 mmol/L (136-145)
[2020-10-06] MEDS ORDERED: Dexamethasone 10 MG/ML VIAL ONE (11:24)
[2020-10-06] MEDS ORDERED: Fentanyl CADD 100 ML IV SCH (11:30)
[2020-10-06 11:42] LABS: Bilirubin Negative (Negative); Blood, Urine Negative (Negative); Clarity Turbid (Clear); Glucose, Urine (Dipstick) Normal (Negative); Ketone, Urine Negative (Negative); Leukocyte Negative Leu/uL (Negative); Nitrite Negative (Negative); Protein, Urine (Dipstick) 70 mg/dL (Neg-Trace); RBC/HPF 0-3 HPF (0-3); Specific Gravity, Urine 1.025 (1.002-1.036); Squamous Epithelial 0-3 HPF (0-3); Urobilinogen Normal mg/dL (Less than 2); pH, Urine 5.5 (5.0-9.0)
[2020-10-06 11:58] LABS: Bacteria/HPF 1+ HPF (None Seen)
[2020-10-06] MEDS ORDERED: Lorazepam 2 MG/ML VIAL ONE ×3 (12:14→16:30)
[2020-10-06] MEDS ORDERED: Lactated Ringer's 1,000 ML IV SCH ×2 (13:45→17:08)
[2020-10-06] MEDS ORDERED: Acetaminophen 325 MG Suppository PR PRN (13:46)
[2020-10-06] MEDS ORDERED: Electrolyte Replacement Protocol 1 EACH IVPB SCH (13:46)
[2020-10-06] MEDS ORDERED: Ventilator Sedation Protocol 1 EACH FS SCH (14:00)
[2020-10-06] MEDS ORDERED: Fentanyl BOLUS 250 ML IVPB PRN (14:15)
[2020-10-06] MEDS ORDERED: Morphine 2 MG/ML VIAL SLOW IVP PRN (14:15)
[2020-10-06] MEDS ORDERED: DISCONTINUE PREVIOUS NARCOTIC PAIN MEDICATIONS AND BENZODIAZEPINES FS SCH (14:15)
[2020-10-06] MEDS ORDERED: Propofol BOLUS 1,000 MG/100 ML VIAL IV PRN (14:15)
[2020-10-06] MEDS ORDERED: Potassium Chloride 20 MEQ in Premix Bag 1 BAG IVPB SCH (15:00)
[2020-10-06] MEDS ORDERED: Potassium Chloride 20 MEQ/100 ML PREMIX BAG ONE (15:09)
[2020-10-06] MEDS ORDERED: Vecuronium 10 MG VIAL ONE (16:30)
[2020-10-06] MEDS: Lactated Ringer's 1,000 ML IV SCH (16:30)
[2020-10-06 16:56] LABS: Actual Bicarbonate (HCO3a) 24.3 mEq/L (22-28); Base Excess (BEa) 2.6 mEq/L (-2.0 to +3.0); CO2 Tension 29.4 mmHg (35.0-45.0); Calcium, Ionized (arterial) 1.09 mmol/L (1.12-1.30); Carboxyhemoglobin (COHb) 0.5 gm% (0.0-3.0); O2 Tension (PaO2), arterial 90.4 mmHg (80.0-100.0); pH, Arterial 7.54 (7.35-7.45)
[2020-10-06 16:59] LABS: Puncture Site RRA
[2020-10-06] MEDS ORDERED: fentaNYL Citrate/PF 2,000 MCG in Sodium Chloride 0.9% 60 ML IV PRN (17:04)
[2020-10-06] MEDS ORDERED: Vecuronium Bromide 50 MG in Sodium Chloride 0.9% 250 ML 250 ML IV SCH (17:15)
[2020-10-06] MEDS: Propofol 1,000 MG/100 ML VIAL IV PRN ×2 (17:49→20:52)
[2020-10-06] MEDS: Lorazepam 2 MG/ML VIAL SLOW IVP PRN ×2 (18:00→20:06)
[2020-10-06] MEDS ORDERED: Tocilizumab 400 MG in Sodium Chloride 0.9% 80 ML IV SCH ×2 (18:00→20:00)
[2020-10-06 18:12] LABS: Troponin I Less than 0.010 ng/mL (< 0.028)
[2020-10-06] MEDS: Azithromycin 500 MG in Sodium Chloride 0.9% 250 ML 250 ML IVPB SCH (18:12)
[2020-10-06] MEDS: Vecuronium 10 MG VIAL IVP PRN ×2 (18:30→20:16)
[2020-10-06 19:04] LABS: Anion Gap 15 mmol/L (10-20); BUN (Urea Nitrogen) 16 mg/dL (9.8-20.1); Calc. Creatinine Clearance 98 mL/min (70-130); Calcium 8.9 mg/dL (7.8-10.44); Carbon Dioxide 22 mmol/L (22-29); Chloride 106 mmol/L (98-107); Glucose 172 mg/dL (70-105); Magnesium 1.9 mg/dL (1.6-2.6); Potassium 3.8 mmol/L (3.5-5.1); Sodium 139 mmol/L (136-145)
[2020-10-06] MEDS: Cholecalciferol 1,000 UNITS (25 MCG) TAB PO SCH (20:14)
[2020-10-06] MEDS ORDERED: Famotidine/PF 20 mg/2ml Vial SLOW IVP SCH (21:00)
[2020-10-07] LABS: Legionella Urinary Ag Negative (Negative); Strep pneumo Urine Ag NEGATIVE (NEGATIVE)
[2020-10-07] MEDS: Propofol 1,000 MG/100 ML VIAL IV PRN ×3 (01:25→19:44)
[2020-10-07] MEDS: Vecuronium 10 MG VIAL IVP PRN ×2 (01:26→09:27)
[2020-10-07] MEDS: Lactated Ringer's 1,000 ML IV SCH ×4 (02:22→22:45)
[2020-10-07] MEDS ORDERED: Fentanyl CADD 100 ML ONE ×2 (04:03→17:22)
[2020-10-07] MEDS: Fentanyl CADD 100 ML IV SCH ×2 (04:06→17:25)
[2020-10-07 04:40] LABS: Hemoglobin 13.5 g/dL (12.0-16.0); Mean Corpuscular HGB CONC 33.7 g/dL (32.0-36.0); Mean Corpuscular Volume 85.9 fL (78.0-98.0); Mean Platelet Volume 8.6 fL (7.4-10.4); Platelet Count 169 thou/uL (130-400); RBC Distribution Width 13.3 % (11.5-14.5); Red Blood Cell (RBC) Count 4.66 mill/uL (4.20-5.40); White Blood Cell (WBC) Count 3.2 thou/uL (4.8-10.8)
[2020-10-07 04:44] LABS: Phosphorus 2.3 mg/dL (2.3-4.7)
[2020-10-07 04:48] LABS: ALT (SGPT) 14 U/L (8-55); AST (SGOT) 19 U/L (5-34); Albumin 3.4 g/dL (3.5-5.0); Alkaline Phosphatase 60 U/L (40-110); Anion Gap 15 mmol/L (10-20); BUN (Urea Nitrogen) 14 mg/dL (9.8-20.1); Bilirubin, Total 0.5 mg/dL (0.2-1.2); Calc. Creatinine Clearance 135 mL/min (70-130); Calcium 8.8 mg/dL (7.8-10.44); Carbon Dioxide 20 mmol/L (22-29); Chloride 106 mmol/L (98-107); Globulin 3.8 g/dL (2.4-3.5); Glucose 132 mg/dL (70-105); Magnesium 1.8 mg/dL (1.6-2.6); Potassium 3.2 mmol/L (3.5-5.1); Protein, Total 7.2 g/dL (6.0-8.3); Sodium 138 mmol/L (136-145)
[2020-10-07] MEDS ORDERED: Sodium Chloride 0.9% (PF) 10 ML VIAL FS PRN (06:15)
[2020-10-07] MEDS ORDERED: Magnesium 2 GM/50 ML 2 GM in Premix Bag 1 BAG IVPB SCH (06:30)
[2020-10-07] MEDS ORDERED: Potassium Chloride 40 MEQ in Sodium Chloride 0.9% 250 ML 250 ML IVPB SCH (06:30)
[2020-10-07 06:42] LABS: Band 4 % (5-11); Lymphocytes 17 % (21-51); MDiff Complete? YES; Monocytes 2 % (0-10); Neutrophil 76 % (42-75); Reactive Lymphocytes 1 % (0-10)
[2020-10-07 07:59] LABS: Actual Bicarbonate (HCO3a) 22.3 mEq/L (22-28); Base Excess (BEa) 2.3 mEq/L (-2.0 to +3.0); Calcium, Ionized (arterial) 1.12 mmol/L (1.12-1.30); Carboxyhemoglobin (COHb) 0.1 gm% (0.0-3.0); Hemoglobin (Hb) 13.7 g/dL (12.0-16.0); Potassium - ABG Lab 3.52 mmol/L (3.70-5.30)
[2020-10-07 08:01] LABS: CO2 Tension 23.4 mmHg (35.0-45.0); Puncture Site RRA
[2020-10-07] MEDS: Enoxaparin Sodium 40 MG/0.4 ML SYRINGE SC SCH (08:02)
[2020-10-07] MEDS: Lorazepam 2 MG/ML VIAL SLOW IVP PRN ×2 (08:03→09:27)
[2020-10-07] MEDS: Ascorbic Acid 500 mg Chewable Tablet PO SCH (08:03)
[2020-10-07] MEDS: Cholecalciferol 1,000 UNITS (25 MCG) TAB PO SCH ×3 (08:03→19:43)
[2020-10-07] MEDS: Aspirin 81 mg Enteric Coated Tablet PO SCH (08:03)
[2020-10-07] MEDS: Ferrous Sulfate 325 MG TAB PO SCH (08:04)
[2020-10-07] MEDS: Nitroglycerin 0.4mg/Hour PATCH TD SCH (08:04)
[2020-10-07] MEDS: Pantoprazole 40 MG VIAL IVP SCH (08:05)
[2020-10-07] MEDS ORDERED: Dexamethasone 6 MG in Sodium Chloride 0.9% 50 ML IVPB SCH (09:00)
[2020-10-07] MEDS ORDERED: Amlodipine 10 MG TAB PO SCH (09:00)
[2020-10-07 16:08] LABS: Base Excess (BEa) 0.7 mEq/L (-2.0 to +3.0); Calcium, Ionized (arterial) 1.15 mmol/L (1.12-1.30); Carboxyhemoglobin (COHb) 0.4 gm% (0.0-3.0); Hemoglobin (Hb) 12.9 g/dL (12.0-16.0); O2 Tension (PaO2), arterial 69.1 mmHg (80.0-100.0); Potassium - ABG Lab 4.06 mmol/L (3.70-5.30); pH, Arterial 7.47 (7.35-7.45)
[2020-10-07 16:09] LABS: Puncture Site RRA
[2020-10-07] MEDS: Azithromycin 500 MG in Sodium Chloride 0.9% 250 ML 250 ML IVPB SCH (17:48)
[2020-10-08 04:29] LABS: Hemoglobin 11.8 g/dL (12.0-16.0); Mean Corpuscular HGB CONC 32.5 g/dL (32.0-36.0); Mean Corpuscular Hemoglobin 28.5 pg (27.0-31.0); Mean Corpuscular Volume 87.6 fL (78.0-98.0); Mean Platelet Volume 8.2 fL (7.4-10.4); Platelet Count 193 thou/uL (130-400); RBC Distribution Width 13.5 % (11.5-14.5); Red Blood Cell (RBC) Count 4.16 mill/uL (4.20-5.40)
[2020-10-08 04:52] LABS: ALT (SGPT) 13 U/L (8-55); AST (SGOT) 16 U/L (5-34); Albumin 2.9 g/dL (3.5-5.0); Alkaline Phosphatase 48 U/L (40-110); Anion Gap 12 mmol/L (10-20); BUN (Urea Nitrogen) 19 mg/dL (9.8-20.1); Bilirubin, Total 0.3 mg/dL (0.2-1.2); Calc. Creatinine Clearance 127 mL/min (70-130); Calcium 8.5 mg/dL (7.8-10.44); Carbon Dioxide 24 mmol/L (22-29); Chloride 107 mmol/L (98-107); Globulin 3.2 g/dL (2.4-3.5); Glucose 101 mg/dL (70-105); Protein, Total 6.1 g/dL (6.0-8.3); Sodium 139 mmol/L (136-145)
[2020-10-08 04:58] LABS: Phosphorus 3.2 mg/dL (2.3-4.7)
[2020-10-08] MEDS: Propofol 1,000 MG/100 ML VIAL IV PRN ×3 (05:14→21:57)
[2020-10-08 05:44] LABS: Band 10 % (5-11); Lymphocytes 24 % (21-51); MDiff Complete? YES; Monocytes 5 % (0-10); Neutrophil 61 % (42-75)
[2020-10-08] MEDS ORDERED: Magnesium 2 GM/50 ML 2 GM in Premix Bag 1 BAG IVPB SCH (05:45)
[2020-10-08] MEDS ORDERED: Fentanyl CADD 100 ML ONE ×2 (07:35→22:12)
[2020-10-08] MEDS: Fentanyl CADD 100 ML IV SCH ×2 (07:38→22:14)
[2020-10-08] MEDS: Nitroglycerin 0.4mg/Hour PATCH TD SCH (08:00)
[2020-10-08] MEDS: Aspirin 81 mg Enteric Coated Tablet PO SCH (08:01)
[2020-10-08] MEDS: Ascorbic Acid 500 mg Chewable Tablet PO SCH (08:01)
[2020-10-08] MEDS: Cholecalciferol 1,000 UNITS (25 MCG) TAB PO SCH ×3 (08:01→20:55)
[2020-10-08] MEDS: Pantoprazole 40 MG VIAL IVP SCH (08:02)
[2020-10-08] MEDS: Enoxaparin Sodium 40 MG/0.4 ML SYRINGE SC SCH ×3 (08:02→20:55)
[2020-10-08] MEDS: Ferrous Sulfate 325 MG TAB PO SCH (08:03)
[2020-10-08] MEDS: Lactated Ringer's 1,000 ML IV SCH ×2 (08:30→21:57)
[2020-10-08] MEDS: Dexamethasone 4 mg/ml Vial SLOW IVP SCH ×2 (08:32→20:55)
[2020-10-08] MEDS ORDERED: Dexamethasone 4 mg/ml Vial SLOW IVP SCH (09:00)
[2020-10-08] MEDS: Aspirin Chewable 81 MG TAB PER TUBE SCH (09:12)
[2020-10-08] MEDS: Lorazepam 2 MG/ML VIAL SLOW IVP PRN (20:56)
[2020-10-09 04:44] LABS: Hemoglobin 12.9 g/dL (12.0-16.0); Mean Corpuscular HGB CONC 33.8 g/dL (32.0-36.0); Mean Corpuscular Hemoglobin 29.4 pg (27.0-31.0); Platelet Count 227 thou/uL (130-400); RBC Distribution Width 13.4 % (11.5-14.5); Red Blood Cell (RBC) Count 4.41 mill/uL (4.20-5.40); White Blood Cell (WBC) Count 4.6 thou/uL (4.8-10.8)
[2020-10-09 04:46] LABS: ALT (SGPT) 24 U/L (8-55); AST (SGOT) 25 U/L (5-34); Albumin 3.1 g/dL (3.5-5.0); Alkaline Phosphatase 62 U/L (40-110); Anion Gap 13 mmol/L (10-20); BUN (Urea Nitrogen) 19 mg/dL (9.8-20.1); Bilirubin, Total 0.3 mg/dL (0.2-1.2); Calc. Creatinine Clearance 137 mL/min (70-130); Calcium 8.6 mg/dL (7.8-10.44); Carbon Dioxide 23 mmol/L (22-29); Chloride 104 mmol/L (98-107); Globulin 3.7 g/dL (2.4-3.5); Glucose 141 mg/dL (70-105); Potassium 4.9 mmol/L (3.5-5.1); Protein, Total 6.8 g/dL (6.0-8.3); Sodium 135 mmol/L (136-145)
[2020-10-09 05:00] LABS: Band 2 % (5-11); Lymphocytes 11 % (21-51); MDiff Complete? YES; Monocytes 7 % (0-10); Neutrophil 80 % (42-75)
[2020-10-09 07:59] LABS: Actual Bicarbonate (HCO3a) 24.1 mEq/L (22-28); Base Excess (BEa) 0.1 mEq/L (-2.0 to +3.0); CO2 Tension 37.3 mmHg (35.0-45.0); Calcium, Ionized (arterial) 1.12 mmol/L (1.12-1.30); Carboxyhemoglobin (COHb) 0.6 gm% (0.0-3.0); Hemoglobin (Hb) 13.5 g/dL (12.0-16.0); O2 Tension (PaO2), arterial 60.4 mmHg (80.0-100.0); Potassium - ABG Lab 4.79 mmol/L (3.70-5.30); pH, Arterial 7.43 (7.35-7.45)
[2020-10-09] MEDS: Dexamethasone 4 mg/ml Vial SLOW IVP SCH ×2 (08:14→21:49)
[2020-10-09] MEDS: Cholecalciferol 1,000 UNITS (25 MCG) TAB PO SCH (08:14)
[2020-10-09] MEDS: Ferrous Sulfate 325 MG TAB PO SCH (08:14)
[2020-10-09] MEDS: Enoxaparin Sodium 40 MG/0.4 ML SYRINGE SC SCH ×2 (08:15→21:49)
[2020-10-09] MEDS: Pantoprazole 40 MG VIAL IVP SCH (08:15)
[2020-10-09] MEDS: Aspirin Chewable 81 MG TAB PER TUBE SCH (08:15)
[2020-10-09] MEDS: Ascorbic Acid 500 mg Chewable Tablet PO SCH (08:15)
[2020-10-09] MEDS: Gabapentin 300 MG CAP PO SCH ×3 (08:16→21:50)
[2020-10-09] MEDS: DULoxetine 60 MG CAP PO SCH (08:17)
[2020-10-09] MEDS: hydrALAZINE 25 MG TAB PER TUBE SCH ×3 (08:17→21:49)
[2020-10-09 08:33] LABS: Puncture Site RRA
[2020-10-09 08:36] LABS: ALV-art Gradient 178.175 mmHg (0-20)
[2020-10-09] MEDS: Lorazepam 2 MG/ML VIAL SLOW IVP PRN (08:51)
[2020-10-09] MEDS: Propofol 1,000 MG/100 ML VIAL IV PRN (11:02)
[2020-10-09] MEDS ORDERED: Fentanyl CADD 100 ML ONE (12:40)
[2020-10-10] MEDS: Lactated Ringer's 1,000 ML IV SCH ×2 (02:41→15:10)
[2020-10-10 04:11] LABS: ALT (SGPT) 72 U/L (8-55); AST (SGOT) 53 U/L (5-34); Albumin 3.1 g/dL (3.5-5.0); Alkaline Phosphatase 68 U/L (40-110); Anion Gap 12 mmol/L (10-20); BUN (Urea Nitrogen) 20 mg/dL (9.8-20.1); Bilirubin, Total 0.3 mg/dL (0.2-1.2); Calc. Creatinine Clearance 144 mL/min (70-130); Calcium 8.7 mg/dL (7.8-10.44); Carbon Dioxide 27 mmol/L (22-29); Chloride 102 mmol/L (98-107); Globulin 3.6 g/dL (2.4-3.5); Glucose 162 mg/dL (70-105); Protein, Total 6.7 g/dL (6.0-8.3); Sodium 136 mmol/L (136-145)
[2020-10-10 04:23] LABS: Hemoglobin 13.1 g/dL (12.0-16.0); Mean Corpuscular HGB CONC 34.3 g/dL (32.0-36.0); Mean Corpuscular Volume 87.4 fL (78.0-98.0); Platelet Count 239 thou/uL (130-400); RBC Distribution Width 13.2 % (11.5-14.5); Red Blood Cell (RBC) Count 4.37 mill/uL (4.20-5.40); White Blood Cell (WBC) Count 7.6 thou/uL (4.8-10.8)
[2020-10-10 04:30] LABS: Band 10 % (5-11); Lymphocytes 15 % (21-51); MDiff Complete? YES; Monocytes 5 % (0-10); Neutrophil 70 % (42-75)
[2020-10-10 07:02] LABS: Actual Bicarbonate (HCO3a) 27.8 mEq/L (22-28); Base Excess (BEa) 1.9 mEq/L (-2.0 to +3.0); CO2 Tension 48.5 mmHg (35.0-45.0); Calcium, Ionized (arterial) 1.17 mmol/L (1.12-1.30); Hemoglobin (Hb) 13.5 g/dL (12.0-16.0); Potassium - ABG Lab 4.89 mmol/L (3.70-5.30); pH, Arterial 7.38 (7.35-7.45)
[2020-10-10 07:04] LABS: O2 Tension (PaO2), arterial 59.6 mmHg (80.0-100.0); Puncture Site RRA
[2020-10-10 07:05] LABS: ALV-art Gradient 164.975 mmHg (0-20)
[2020-10-10] MEDS: Apixaban 2.5 MG TAB PER TUBE SCH ×2 (08:28→20:39)
[2020-10-10] MEDS: Dexamethasone 4 mg/ml Vial SLOW IVP SCH ×2 (08:30→20:39)
[2020-10-10] MEDS: Pantoprazole 40 MG GRANULES PACKET PER TUBE SCH (08:30)
[2020-10-10] MEDS: Gabapentin 300 MG CAP PO SCH ×3 (08:31→20:38)
[2020-10-10] MEDS: Cholecalciferol 1,000 UNITS (25 MCG) TAB PO SCH (08:33)
[2020-10-10] MEDS: Ascorbic Acid 500 mg Chewable Tablet PO SCH (08:33)
[2020-10-10] MEDS: DULoxetine 60 MG CAP PO SCH (08:33)
[2020-10-10] MEDS: hydrALAZINE 25 MG TAB PER TUBE SCH ×3 (08:33→20:38)
[2020-10-10] MEDS: Aspirin Chewable 81 MG TAB PER TUBE SCH (08:34)
[2020-10-10] MEDS ORDERED: DC Sedation Protocol FS ONE (12:03)
[2020-10-10] MEDS ORDERED: HYDROcodone/Acetaminophen 10/325 mg Tablet PO SCH ×2 (17:45→21:00)
[2020-10-10] MEDS ORDERED: rOPINIRole HCl 1 MG TAB PO SCH (21:00)
[2020-10-11 03:58] LABS: ALT (SGPT) 58 U/L (8-55); AST (SGOT) 31 U/L (5-34); Albumin 3.5 g/dL (3.5-5.0); Alkaline Phosphatase 68 U/L (40-110); Anion Gap 12 mmol/L (10-20); BUN (Urea Nitrogen) 21 mg/dL (9.8-20.1); Bilirubin, Total 0.4 mg/dL (0.2-1.2); Calc. Creatinine Clearance 140 mL/min (70-130); Calcium 9.4 mg/dL (7.8-10.44); Carbon Dioxide 30 mmol/L (22-29); Chloride 101 mmol/L (98-107); Globulin 3.6 g/dL (2.4-3.5); Glucose 112 mg/dL (70-105); Potassium 4.8 mmol/L (3.5-5.1); Protein, Total 7.1 g/dL (6.0-8.3); Sodium 138 mmol/L (136-145)
[2020-10-11 04:34] LABS: Hemoglobin 13.7 g/dL (12.0-16.0); Mean Corpuscular HGB CONC 34.1 g/dL (32.0-36.0); Mean Corpuscular Hemoglobin 29.6 pg (27.0-31.0); Mean Corpuscular Volume 86.7 fL (78.0-98.0); Mean Platelet Volume 7.6 fL (7.4-10.4); Platelet Count 267 thou/uL (130-400); RBC Distribution Width 13.4 % (11.5-14.5); Red Blood Cell (RBC) Count 4.64 mill/uL (4.20-5.40); White Blood Cell (WBC) Count 9.9 thou/uL (4.8-10.8)
[2020-10-11 04:37] LABS: Band 2 % (5-11); Lymphocytes 9 % (21-51); MDiff Complete? YES; Monocytes 5 % (0-10); Neutrophil 82 % (42-75); Reactive Lymphocytes 2 % (0-10)
[2020-10-11] MEDS ORDERED: Methocarbamol 500 MG TAB PO PRN (07:42)
[2020-10-11] MEDS: Gabapentin 300 MG CAP PO SCH ×3 (10:18→22:17)
[2020-10-11] MEDS: DULoxetine 60 MG CAP PO SCH (10:18)
[2020-10-11] MEDS: Aspirin Chewable 81 MG TAB PER TUBE SCH (10:18)
[2020-10-11] MEDS: Cholecalciferol 1,000 UNITS (25 MCG) TAB PO SCH (10:19)
[2020-10-11] MEDS: Ascorbic Acid 500 mg Chewable Tablet PO SCH (10:20)
[2020-10-11] MEDS: hydrALAZINE 25 MG TAB PER TUBE SCH ×3 (10:20→22:17)
[2020-10-11] MEDS: Amlodipine 10 MG TAB PO SCH (10:20)
[2020-10-11] MEDS: Apixaban 2.5 MG TAB PER TUBE SCH ×2 (10:21→22:18)
[2020-10-11] MEDS: Dexamethasone 4 mg/ml Vial SLOW IVP SCH (10:22)
[2020-10-11] MEDS: Pantoprazole 40 MG GRANULES PACKET PER TUBE SCH (10:24)
[2020-10-11] MEDS: Benztropine 1 MG TAB PO SCH (10:30)
[2020-10-11] MEDS ORDERED: Lorazepam 2 MG/ML VIAL SLOW IVP SCH (11:45)
[2020-10-11] MEDS: Lactated Ringer's 1,000 ML IV SCH (14:00)
[2020-10-11] MEDS: rOPINIRole HCl 1 MG TAB PO SCH (22:18)
[2020-10-12 04:16] LABS: ALT (SGPT) 45 U/L (8-55); AST (SGOT) 28 U/L (5-34); Albumin 3.3 g/dL (3.5-5.0); Alkaline Phosphatase 56 U/L (40-110); Anion Gap 12 mmol/L (10-20); BUN (Urea Nitrogen) 22 mg/dL (9.8-20.1); Bilirubin, Total 0.6 mg/dL (0.2-1.2); Calc. Creatinine Clearance 129 mL/min (70-130); Calcium 9.2 mg/dL (7.8-10.44); Carbon Dioxide 30 mmol/L (22-29); Chloride 99 mmol/L (98-107); Globulin 3.2 g/dL (2.4-3.5); Glucose 102 mg/dL (70-105); Potassium 4.3 mmol/L (3.5-5.1); Protein, Total 6.5 g/dL (6.0-8.3); Sodium 137 mmol/L (136-145)
[2020-10-12 04:21] LABS: Hemoglobin 13.4 g/dL (12.0-16.0); Mean Corpuscular HGB CONC 34.1 g/dL (32.0-36.0); Mean Corpuscular Hemoglobin 29.4 pg (27.0-31.0); Mean Platelet Volume 7.8 fL (7.4-10.4); Platelet Count 271 thou/uL (130-400); RBC Distribution Width 13.4 % (11.5-14.5); Red Blood Cell (RBC) Count 4.57 mill/uL (4.20-5.40); White Blood Cell (WBC) Count 9.7 thou/uL (4.8-10.8)
[2020-10-12 05:14] LABS: Band 1 % (5-11); Lymphocytes 6 % (21-51); Metamyelocyte 1 % (0-0); Monocytes 13 % (0-10); Myelocyte 1 % (0-0)
[2020-10-12 05:15] LABS: Platelet Morphology Comment Appears Adequate
[2020-10-12 05:16] LABS: RBC Morphology Normal
[2020-10-12] MEDS: Benztropine 1 MG TAB PO SCH (08:53)
[2020-10-12] MEDS: DULoxetine 60 MG CAP PO SCH (08:53)
[2020-10-12] MEDS: Gabapentin 300 MG CAP PO SCH ×3 (08:54→20:07)
[2020-10-12] MEDS: Cholecalciferol 1,000 UNITS (25 MCG) TAB PO SCH (08:54)
[2020-10-12] MEDS: Pantoprazole 40 MG GRANULES PACKET PER TUBE SCH (08:54)
[2020-10-12] MEDS: hydrALAZINE 25 MG TAB PER TUBE SCH ×3 (08:54→21:25)
[2020-10-12] MEDS: Apixaban 2.5 MG TAB PER TUBE SCH ×2 (08:54→20:07)
[2020-10-12] MEDS: Aspirin Chewable 81 MG TAB PER TUBE SCH (08:54)
[2020-10-12] MEDS: Ascorbic Acid 500 mg Chewable Tablet PO SCH (08:54)
[2020-10-12] MEDS: Amlodipine 10 MG TAB PO SCH (08:54)
[2020-10-12] MEDS: Dexamethasone 4 mg/ml Vial SLOW IVP SCH (08:55)
[2020-10-12] MEDS: rOPINIRole HCl 1 MG TAB PO SCH (20:09)
[2020-10-12] MEDS: Valbenazine Tosylate [Ingrezza] 40 MG PO SCH (20:10)
[2020-10-12] MEDS ORDERED: Lorazepam 2 MG/ML VIAL SLOW IVP SCH (20:45)
[2020-10-13 03:49] LABS: Band 2 % (5-11); Eosinophils 1 % (0-10); Hemoglobin 13.3 g/dL (12.0-16.0); Lymphocytes 16 % (21-51); MDiff Complete? YES; Mean Corpuscular HGB CONC 34.2 g/dL (32.0-36.0); Mean Corpuscular Hemoglobin 29.5 pg (27.0-31.0); Mean Corpuscular Volume 86.1 fL (78.0-98.0); Mean Platelet Volume 7.6 fL (7.4-10.4); Monocytes 16 % (0-10); Neutrophil 65 % (42-75); Platelet Count 286 thou/uL (130-400); Platelet Morphology Comment Appears Adequate; RBC Distribution Width 13.6 % (11.5-14.5); RBC Morphology Normal; White Blood Cell (WBC) Count 7.4 thou/uL (4.8-10.8)
[2020-10-13 03:53] LABS: ALT (SGPT) 38 U/L (8-55); AST (SGOT) 26 U/L (5-34); Albumin 3.4 g/dL (3.5-5.0); Alkaline Phosphatase 55 U/L (40-110); Anion Gap 14 mmol/L (10-20); BUN (Urea Nitrogen) 31 mg/dL (9.8-20.1); Bilirubin, Total 0.8 mg/dL (0.2-1.2); Calc. Creatinine Clearance 104 mL/min (70-130); Calcium 9.4 mg/dL (7.8-10.44); Carbon Dioxide 28 mmol/L (22-29); Chloride 102 mmol/L (98-107); Globulin 3.3 g/dL (2.4-3.5); Glucose 97 mg/dL (70-105); Protein, Total 6.7 g/dL (6.0-8.3); Sodium 140 mmol/L (136-145)
[2020-10-13] MEDS: Aspirin Chewable 81 MG TAB PER TUBE SCH (08:35)
[2020-10-13] MEDS: Benztropine 1 MG TAB PO SCH (08:35)
[2020-10-13] MEDS: Apixaban 2.5 MG TAB PER TUBE SCH ×2 (08:35→20:18)
[2020-10-13] MEDS: DULoxetine 60 MG CAP PO SCH (08:35)
[2020-10-13] MEDS: Famotidine 20 MG TAB PO SCH ×2 (08:36→20:18)
[2020-10-13] MEDS: hydrALAZINE 25 MG TAB PER TUBE SCH ×3 (08:36→20:19)
[2020-10-13] MEDS: Cholecalciferol 1,000 UNITS (25 MCG) TAB PO SCH (08:36)
[2020-10-13] MEDS: Ascorbic Acid 500 mg Chewable Tablet PO SCH (08:36)
[2020-10-13] MEDS: Gabapentin 300 MG CAP PO SCH ×3 (08:36→20:18)
[2020-10-13] MEDS: Amlodipine 10 MG TAB PO SCH (08:37)
[2020-10-13] MEDS: Dexamethasone 4 mg/ml Vial SLOW IVP SCH (08:37)
[2020-10-13] MEDS: Valbenazine Tosylate [Ingrezza] 40 MG PO SCH (20:17)
[2020-10-13] MEDS: rOPINIRole HCl 1 MG TAB PO SCH (20:18)
[2020-10-14 04:21] LABS: ALT (SGPT) 39 U/L (8-55); AST (SGOT) 26 U/L (5-34); Albumin 3.6 g/dL (3.5-5.0); Alkaline Phosphatase 55 U/L (40-110); Anion Gap 15 mmol/L (10-20); BUN (Urea Nitrogen) 32 mg/dL (9.8-20.1); Bilirubin, Total 0.9 mg/dL (0.2-1.2); Calc. Creatinine Clearance 101 mL/min (70-130); Calcium 9.3 mg/dL (7.8-10.44); Carbon Dioxide 25 mmol/L (22-29); Chloride 104 mmol/L (98-107); Globulin 3.2 g/dL (2.4-3.5); Glucose 114 mg/dL (70-105); Potassium 3.5 mmol/L (3.5-5.1); Protein, Total 6.8 g/dL (6.0-8.3); Sodium 140 mmol/L (136-145)
[2020-10-14 04:26] LABS: Band 8 % (5-11); Eosinophils 3 % (0-10); Hemoglobin 13.2 g/dL (12.0-16.0); Lymphocytes 16 % (21-51); MDiff Complete? YES; Mean Corpuscular HGB CONC 33.6 g/dL (32.0-36.0); Mean Corpuscular Hemoglobin 29.1 pg (27.0-31.0); Mean Corpuscular Volume 86.4 fL (78.0-98.0); Mean Platelet Volume 7.6 fL (7.4-10.4); Monocytes 9 % (0-10); Myelocyte 1 % (0-0); Neutrophil 60 % (42-75); Platelet Count 270 thou/uL (130-400); Platelet Morphology Comment Appears Adequate; RBC Distribution Width 13.7 % (11.5-14.5); RBC Morphology Normal; Reactive Lymphocytes 3 % (0-10); Red Blood Cell (RBC) Count 4.53 mill/uL (4.20-5.40); White Blood Cell (WBC) Count 5.7 thou/uL (4.8-10.8)
[2020-10-14] MEDS: Cholecalciferol 1,000 UNITS (25 MCG) TAB PO SCH (08:52)
[2020-10-14] MEDS: Gabapentin 300 MG CAP PO SCH ×3 (08:52→20:39)
[2020-10-14] MEDS: Benztropine 1 MG TAB PO SCH (08:52)
[2020-10-14] MEDS: Famotidine 20 MG TAB PO SCH ×2 (08:52→20:39)
[2020-10-14] MEDS: Apixaban 2.5 MG TAB PER TUBE SCH (08:52)
[2020-10-14] MEDS: Ascorbic Acid 500 mg Chewable Tablet PO SCH (08:52)
[2020-10-14] MEDS: Amlodipine 10 MG TAB PO SCH (08:53)
[2020-10-14] MEDS: Aspirin Chewable 81 MG TAB PER TUBE SCH (08:53)
[2020-10-14] MEDS: DULoxetine 60 MG CAP PO SCH (08:53)
[2020-10-14] MEDS: Dexamethasone 4 mg/ml Vial SLOW IVP SCH (08:53)
[2020-10-14] MEDS: hydrALAZINE 25 MG TAB PER TUBE SCH ×2 (08:54→16:54)
[2020-10-14] MEDS: Apixaban 2.5 MG TAB PO SCH (20:39)
[2020-10-14] MEDS: Valbenazine Tosylate [Ingrezza] 40 MG PO SCH (20:40)
[2020-10-14] MEDS: hydrALAZINE 25 MG TAB PO SCH (20:40)
[2020-10-14] MEDS: rOPINIRole HCl 1 MG TAB PO SCH (20:41)
[2020-10-14] MEDS: HYDROcodone/Acetaminophen 10/325 mg Tablet PO PRN (20:53)
[2020-10-15 07:19] LABS: #Eosinphils 0.3 thou/uL (0.0-0.7); #Lymphocytes 1.1 thou/uL (1.20-3.40); #Monocytes 0.4 thou/uL (0.11-0.59); #Neutrophils 2.5 thou/uL (1.40-6.50); %Basophils 0.9 % (0.0-1.0); %Lymphocytes 25.1 % (21.0-51.0); %Monocytes 8.9 % (0.0-10.0); %Neutrophils 58.2 % (42.0-75.0); Hemoglobin 12.7 g/dL (12.0-16.0); Mean Corpuscular HGB CONC 32.8 g/dL (32.0-36.0); Mean Corpuscular Hemoglobin 28.9 pg (27.0-31.0); Mean Platelet Volume 7.7 fL (7.4-10.4); Platelet Count 246 thou/uL (130-400); RBC Distribution Width 13.7 % (11.5-14.5); Red Blood Cell (RBC) Count 4.41 mill/uL (4.20-5.40); White Blood Cell (WBC) Count 4.4 thou/uL (4.8-10.8)
[2020-10-15 07:21] LABS: ALT (SGPT) 32 U/L (8-55); AST (SGOT) 22 U/L (5-34); Albumin 3.5 g/dL (3.5-5.0); Alkaline Phosphatase 50 U/L (40-110); Anion Gap 11 mmol/L (10-20); BUN (Urea Nitrogen) 26 mg/dL (9.8-20.1); Bilirubin, Total 1.1 mg/dL (0.2-1.2); Calc. Creatinine Clearance 108 mL/min (70-130); Calcium 9.3 mg/dL (7.8-10.44); Carbon Dioxide 30 mmol/L (22-29); Chloride 104 mmol/L (98-107); Globulin 3.1 g/dL (2.4-3.5); Glucose 85 mg/dL (70-105); Potassium 3.7 mmol/L (3.5-5.1); Protein, Total 6.6 g/dL (6.0-8.3); Sodium 141 mmol/L (136-145)
[2020-10-15] MEDS: Aspirin Chewable 81 MG TAB PO SCH (09:22)
[2020-10-15] MEDS: hydrALAZINE 25 MG TAB PO SCH ×4 (09:22→20:40)
[2020-10-15] MEDS: DULoxetine 60 MG CAP PO SCH (09:22)
[2020-10-15] MEDS: Cholecalciferol 1,000 UNITS (25 MCG) TAB PO SCH (09:22)
[2020-10-15] MEDS: Apixaban 2.5 MG TAB PO SCH ×2 (09:22→20:39)
[2020-10-15] MEDS: Benztropine 1 MG TAB PO SCH (09:22)
[2020-10-15] MEDS: Gabapentin 300 MG CAP PO SCH ×3 (09:22→20:40)
[2020-10-15] MEDS: Dexamethasone 4 mg/ml Vial SLOW IVP SCH (09:23)
[2020-10-15] MEDS: Famotidine 20 MG TAB PO SCH ×2 (09:23→20:39)
[2020-10-15] MEDS: Ascorbic Acid 500 mg Chewable Tablet PO SCH (09:23)
[2020-10-15] MEDS: Amlodipine 10 MG TAB PO SCH (09:23)
[2020-10-15] MEDS: HYDROcodone/Acetaminophen 10/325 mg Tablet PO PRN ×2 (09:30→15:14)
[2020-10-15 12:43] LABS: Bilirubin Negative (Negative); Blood, Urine 3+ (Negative); Clarity Turbid (Clear); Glucose, Urine (Dipstick) Normal (Negative); Ketone, Urine Negative (Negative); Leukocyte 75 Leu/uL (Negative); Nitrite Negative (Negative); Protein, Urine (Dipstick) 50 mg/dL (Neg-Trace); RBC/HPF Greater than 50 HPF (0-3); Specific Gravity, Urine 1.019 (1.002-1.036); Urobilinogen Normal mg/dL (Less than 2); Yeast-Budding 1+ HPF (None Seen)
[2020-10-15 12:52] LABS: Bacteria/HPF Rare-Few HPF (None Seen); Squamous Epithelial 0-3 HPF (0-3)
[2020-10-15 13:08] VITALS: BMI 42.0
[2020-10-15] MEDS ORDERED: Cepastat Lozenges 1 LOZ PO PRN (14:18)
[2020-10-15] MEDS: rOPINIRole HCl 1 MG TAB PO SCH (20:41)
[2020-10-15] MEDS: Valbenazine Tosylate [Ingrezza] 40 MG PO SCH (20:44)
[2020-10-16] MEDS: Amlodipine 10 MG TAB PO SCH (08:41)
[2020-10-16] MEDS: hydrALAZINE 25 MG TAB PO SCH ×3 (08:41→21:07)
[2020-10-16] MEDS: Benztropine 1 MG TAB PO SCH (08:41)
[2020-10-16] MEDS: Cholecalciferol 1,000 UNITS (25 MCG) TAB PO SCH (08:41)
[2020-10-16] MEDS: Aspirin Chewable 81 MG TAB PO SCH (08:41)
[2020-10-16] MEDS: DULoxetine 60 MG CAP PO SCH (08:41)
[2020-10-16] MEDS: Famotidine 20 MG TAB PO SCH ×2 (08:41→21:07)
[2020-10-16] MEDS: Dexamethasone 4 MG TAB PO SCH (08:41)
[2020-10-16] MEDS: Apixaban 2.5 MG TAB PO SCH ×2 (08:42→21:07)
[2020-10-16] MEDS: Gabapentin 300 MG CAP PO SCH ×3 (08:42→21:07)
[2020-10-16] MEDS: Ascorbic Acid 500 mg Chewable Tablet PO SCH (08:42)
[2020-10-16] MEDS: HYDROcodone/Acetaminophen 10/325 mg Tablet PO PRN (16:10)
[2020-10-16] MEDS: Valbenazine Tosylate [Ingrezza] 40 MG PO SCH (21:07)
[2020-10-16] MEDS: rOPINIRole HCl 1 MG TAB PO SCH (21:07)
[2020-10-17 05:18] LABS: Anion Gap 11 mmol/L (10-20); BUN (Urea Nitrogen) 23 mg/dL (9.8-20.1); Calc. Creatinine Clearance 123 mL/min (70-130); Carbon Dioxide 29 mmol/L (22-29); Chloride 104 mmol/L (98-107); Glucose 108 mg/dL (70-105); Potassium 3.7 mmol/L (3.5-5.1); Sodium 140 mmol/L (136-145)
[2020-10-17 08:11] VITALS: BP 128/92; TEMP 98.3
[2020-10-17] MEDS: Amlodipine 10 MG TAB PO SCH (08:44)
[2020-10-17] MEDS: DULoxetine 60 MG CAP PO SCH (08:44)
[2020-10-17] MEDS: Aspirin Chewable 81 MG TAB PO SCH (08:44)
[2020-10-17] MEDS: Gabapentin 300 MG CAP PO SCH (08:44)
[2020-10-17] MEDS: Benztropine 1 MG TAB PO SCH (08:44)
[2020-10-17] MEDS: Cholecalciferol 1,000 UNITS (25 MCG) TAB PO SCH (08:45)
[2020-10-17] MEDS: hydrALAZINE 25 MG TAB PO SCH (08:45)
[2020-10-17] MEDS: Famotidine 20 MG TAB PO SCH (08:45)
[2020-10-17] MEDS: Dexamethasone 4 MG TAB PO SCH (08:45)
[2020-10-17] MEDS: Ascorbic Acid 500 mg Chewable Tablet PO SCH (08:45)
[2020-10-17] MEDS: Apixaban 2.5 MG TAB PO SCH (08:46)
== END 2020-10-17 13:26 | DRG 207 ==
LOC: ERS 10:40 → ERHOLD 12:16 → CCU 16:29 → IMCU/EMU 10-11 21:42 → T4-B 10-14 18:22
PROVIDERS: ADMIT Student in an Organized Health Care Education/Training Program; ATTEND Student in an Organized Health Care Education/Training Program
PROC: 5A1955Z Respiratory Ventilation, Greater than 96 Consecutive Hours (ICD-10-PCS; principal; 2020-10-06)
PROC: 8E0ZXY6 Isolation (ICD-10-PCS; 2020-10-06)
PROC: 0D9670Z Drainage of Stomach with Drainage Device, Via Natural or Artificial Opening (ICD-10-PCS; 2020-10-06)
PROC: XW033H5 Introduction of Tocilizumab into Peripheral Vein, Percutaneous Approach, New Technology Group 5 (ICD-10-PCS; 2020-10-06)
DX: U07.1 COVID-19 (principal); J12.82 Pneumonia due to coronavirus disease 2019; J96.01 Acute respiratory failure with hypoxia; N17.9 Acute kidney failure, unspecified; Z68.41 Body mass index [BMI] 40.0-44.9, adult; J45.21 Mild intermittent asthma with (acute) exacerbation; I12.9 Hypertensive chronic kidney disease with stage 1 through stage 4 chronic kidney disease, or unspecified chronic kidney disease; N18.31 Chronic kidney disease, stage 3a; E87.6 Hypokalemia; F20.9 Schizophrenia, unspecified; G20 Parkinson's disease; M48.02 Spinal stenosis, cervical region; R00.1 Bradycardia, unspecified; G24.9 Dystonia, unspecified; G25.71 Drug induced akathisia; G24.01 Drug induced subacute dyskinesia; T43.95XA Adverse effect of unspecified psychotropic drug, initial encounter; E66.01 Morbid (severe) obesity due to excess calories; Z96.652 Presence of left artificial knee joint; E87.5 Hyperkalemia; K59.00 Constipation, unspecified; Z87.442 Personal history of urinary calculi; Z78.1 Physical restraint status; Z98.890 Other specified postprocedural states; Z88.5 Allergy status to narcotic agent; Z79.82 Long term (current) use of aspirin; Z86.19 Personal history of other infectious and parasitic diseases; Z83.438 Family history of other disorder of lipoprotein metabolism and other lipidemia; Z82.49 Family history of ischemic heart disease and other diseases of the circulatory system; Z80.0 Family history of malignant neoplasm of digestive organs; Z80.8 Family history of malignant neoplasm of other organs or systems; Z79.899 Other long term (current) drug therapy; G89.29 Other chronic pain
CPT/HCPCS: 36415; 36416; 36600; 71045; 74018; 80048; 80053; 81001; 82728; 82805; 83605; 83735; 84100; 84145; 84484; 85007; 85025; 85027; 86140; 87086; 87449; 87899; 93005; 94002; 94003; 96365; 96366; 96368; 96374; 96375; C9113; J0456; J1100; J1650; J2060; J2704; J3010; J3262; J3475; J3480; J3490; J7050; J8540; S0028

== ENCOUNTER 2021-03-15 05:55 | Day surgery (SDC) | payer MEDICARE, MEDICAID ==
[2021-02-28 13:17] VITALS: BMI 43.8
[2021-03-15] MEDS ORDERED: Bupivacaine PF 0.5% 30 ML VIAL ONE ×3 (06:53→10:03)
[2021-03-15] MEDS ORDERED: Bacitracin Zinc Ointment 30 gm TUBE ONE (06:53)
[2021-03-15] MEDS ORDERED: Neomycin-Polymyxin 1 ML AMP ONE (06:53)
[2021-03-15] MEDS ORDERED: Midazolam HCl 2 mg/2 ml Vial ONE ×2 (06:55→07:09)
[2021-03-15] MEDS ORDERED: Fentanyl 100 MCG/2 ML VIAL ONE ×5 (06:55→10:51)
[2021-03-15] MEDS ORDERED: Lidocaine 1% PF 5 ML VIAL ONE ×2 (06:55→07:26)
[2021-03-15] MEDS ORDERED: ceFAZolin 2 GM/Dextrose 50 ML IVPB ONE (07:02)
[2021-03-15] MEDS ORDERED: PROPOFOL 200 MG/20 ML VIAL ONE (07:26)
[2021-03-15] MEDS ORDERED: Ondansetron PF 4 MG/2 ML Vial ONE (07:26)
== END 2021-03-15 13:15 | disposition home or self-care (01) ==
LOC: SDC 05:55
PROVIDERS: ATTEND Orthopaedic Surgery Hand Surgery
PROC: 0LX60ZZ Transfer Left Lower Arm and Wrist Tendon, Open Approach (ICD-10-PCS; principal; 2021-03-15)
PROC: 0RUT07Z Supplement Left Carpometacarpal Joint with Autologous Tissue Substitute, Open Approach (ICD-10-PCS; 2021-03-15)
DX: M18.12 Unilateral primary osteoarthritis of first carpometacarpal joint, left hand (principal); M24.08 Loose body, other site; G89.29 Other chronic pain; M54.9 Dorsalgia, unspecified; E66.9 Obesity, unspecified; Z68.41 Body mass index [BMI] 40.0-44.9, adult; Z86.16 Personal history of COVID-19; Z79.82 Long term (current) use of aspirin; Z79.899 Other long term (current) drug therapy; Z88.5 Allergy status to narcotic agent; Z98.1 Arthrodesis status
CPT/HCPCS: 25310; 25447; 73110; 76000; C1713; C1894; J0690; J2250; J2405; J2704; J3010; S0020

== ENCOUNTER 2021-03-25 13:44 | Emergency (ER) | payer MEDICARE, MEDICAID ==
[2021-03-25 16:00] LABS: #Eosinphils 0.1 thou/uL (0.0-0.7); #Lymphocytes 0.7 thou/uL (1.20-3.40); #Monocytes 0.6 thou/uL (0.11-0.59); #Neutrophils 8.7 thou/uL (1.40-6.50); %Basophils 0.2 % (0.0-1.0); %Eosinophils 1.3 % (0.0-10.0); %Lymphocytes 6.8 % (21.0-51.0); %Monocytes 6.3 % (0.0-10.0); %Neutrophils 85.4 % (42.0-75.0); Hemoglobin 13.1 g/dL (12.0-16.0); Mean Corpuscular HGB CONC 32.1 g/dL (32.0-36.0); Mean Corpuscular Hemoglobin 28.3 pg (27.0-31.0); Mean Corpuscular Volume 88.2 fL (78.0-98.0); Mean Platelet Volume 6.1 fL (7.4-10.4); Platelet Count 322 thou/uL (130-400); RBC Distribution Width 12.9 % (11.5-14.5); Red Blood Cell (RBC) Count 4.64 mill/uL (4.20-5.40); White Blood Cell (WBC) Count 10.1 thou/uL (4.8-10.8)
[2021-03-25 16:20] LABS: ALT (SGPT) 11 U/L (8-55); AST (SGOT) 24 U/L (5-34); Albumin 4.5 g/dL (3.5-5.0); Alkaline Phosphatase 82 U/L (40-110); Anion Gap 15 mmol/L (10-20); BUN (Urea Nitrogen) 12 mg/dL (9.8-20.1); Bilirubin, Total 0.6 mg/dL (0.2-1.2); Calc. Creatinine Clearance 0 mL/min (70-130); Calcium 9.9 mg/dL (7.8-10.44); Carbon Dioxide 26 mmol/L (22-29); Chloride 96 mmol/L (98-107); Glucose 100 mg/dL (70-105); Potassium 3.7 mmol/L (3.5-5.1); Protein, Total 8.5 g/dL (6.0-8.3); Sodium 133 mmol/L (136-145)
== END 2021-03-25 16:17 | disposition home or self-care (01) ==
LOC: ERS 13:44
DX: S99.921A Unspecified injury of right foot, initial encounter (principal); I10 Essential (primary) hypertension; W19.XXXA Unspecified fall, initial encounter
CPT/HCPCS: 36415; 70450; 72125; 80053; 84484; 85025

== ENCOUNTER 2021-03-28 11:57 | Emergency (ER) | payer MEDICARE, MEDICAID ==
[2021-03-28 12:20] LABS: #Eosinphils 0.2 thou/uL (0.0-0.7); #Lymphocytes 0.8 thou/uL (1.20-3.40); #Monocytes 0.5 thou/uL (0.11-0.59); #Neutrophils 3.6 thou/uL (1.40-6.50); %Basophils 0.7 % (0.0-1.0); %Eosinophils 3.6 % (0.0-10.0); %Lymphocytes 15.9 % (21.0-51.0); %Monocytes 9.3 % (0.0-10.0); %Neutrophils 70.6 % (42.0-75.0); Mean Corpuscular HGB CONC 32.7 g/dL (32.0-36.0); Mean Corpuscular Hemoglobin 28.9 pg (27.0-31.0); Mean Corpuscular Volume 88.4 fL (78.0-98.0); Mean Platelet Volume 6.9 fL (7.4-10.4); Platelet Count 249 thou/uL (130-400); RBC Distribution Width 12.8 % (11.5-14.5); Red Blood Cell (RBC) Count 4.49 mill/uL (4.20-5.40); White Blood Cell (WBC) Count 5.1 thou/uL (4.8-10.8)
[2021-03-28 13:34] LABS: ALT (SGPT) 11 U/L (8-55); AST (SGOT) 25 U/L (5-34); Albumin 4.1 g/dL (3.5-5.0); Alkaline Phosphatase 58 U/L (40-110); Anion Gap 13 mmol/L (10-20); BUN (Urea Nitrogen) 9 mg/dL (9.8-20.1); Bilirubin, Total 0.8 mg/dL (0.2-1.2); Calc. Creatinine Clearance 0 mL/min (70-130); Calcium 9.4 mg/dL (7.8-10.44); Carbon Dioxide 29 mmol/L (22-29); Chloride 102 mmol/L (98-107); Globulin 3.4 g/dL (2.4-3.5); Glucose 92 mg/dL (70-105); Potassium 3.7 mmol/L (3.5-5.1); Protein, Total 7.5 g/dL (6.0-8.3); Sodium 140 mmol/L (136-145)
[2021-03-28 16:16] LABS: Bilirubin Negative (Negative); Blood, Urine Negative (Negative); Clarity Clear (Clear); Glucose, Urine (Dipstick) Normal (Negative); Ketone, Urine Negative (Negative); Leukocyte 75 Leu/uL (Negative); Nitrite Negative (Negative); Protein, Urine (Dipstick) Negative (Neg-Trace); RBC/HPF 0-3 HPF (0-3); Specific Gravity, Urine 1.008 (1.002-1.036); Squamous Epithelial 0-3 HPF (0-3); WBC/HPF 0-3 HPF (0-3); pH, Urine 6.5 (5.0-9.0)
[2021-03-28 16:17] LABS: Bacteria/HPF Rare-Few HPF (None Seen)
== END 2021-03-28 17:07 | disposition home or self-care (01) ==
LOC: ERS 11:57
DX: R53.1 Weakness (principal); S92.321A Displaced fracture of second metatarsal bone, right foot, initial encounter for closed fracture; R29.6 Repeated falls; I10 Essential (primary) hypertension; J45.909 Unspecified asthma, uncomplicated; G20 Parkinson's disease; W18.30XA Fall on same level, unspecified, initial encounter
CPT/HCPCS: 36415; 70450; 71045; 72125; 80053; 81003; 81015; 85025; 93005; 94760

== ENCOUNTER 2021-10-29 09:48 | Outpatient (CLI) | payer OTHER, MEDICAID | END 2021-10-29 09:49 | disposition home or self-care (01) | LOC: MRI 09:48 | PROVIDERS: ATTEND Orthopaedic Surgery Hand Surgery | DX: M87.00 Idiopathic aseptic necrosis of unspecified bone (principal); Z98.890 Other specified postprocedural states ==

== ENCOUNTER 2021-11-13 08:44 | Outpatient (CLI) | payer OTHER | END 2021-11-13 08:45 | disposition home or self-care (01) | LOC: DTY/OP 08:44 | PROVIDERS: ATTEND Family Medicine | DX: R63.4 Abnormal weight loss (principal); Z68.42 Body mass index [BMI] 45.0-49.9, adult | CPT/HCPCS: 97802 ==

== ENCOUNTER 2022-06-26 10:11 | Outpatient (CLI) | payer OTHER, MEDICAID ==
[2022-06-26 11:39] LABS: #Eosinphils 0.2 10x3/uL (0.0-0.5); #Monocytes 0.6 10x3/uL (0.0-1.1); #Neutrophils 3.7 10x3/uL (1.5-8.4); %Basophils 0.6 % (0.0-2.0); %Eosinophils 4.3 % (0.0-6.0); %Lymphocytes 12.6 % (18.0-47.0); %Monocytes 11.6 % (0.0-10.0); %Neutrophils 70.5 % (40.0-75.0); Hemoglobin 12.2 g/dL (12.0-15.5); Mean Corpuscular HGB CONC 31.9 g/dL (32.0-36.0); Mean Corpuscular Hemoglobin 25.7 pg (27.0-33.0); Mean Corpuscular Volume 80.6 fl (81.6-98.3); Mean Platelet Volume 9.9 fl (7.4-10.4); Platelet Count 268 10x3/uL (150-450); RBC Distribution Width 14.7 % (11.5-14.5); Red Blood Cell (RBC) Count 4.74 10x6/uL (3.90-5.03); White Blood Cell (WBC) Count 5.2 10x3/uL (3.5-10.5)
[2022-06-26 12:12] LABS: Anion Gap 17 mmol/L (10-20); BUN (Urea Nitrogen) 13 mg/dL (9.8-20.1); Calc. Creatinine Clearance 0 mL/min (70-130); Calcium 9.4 mg/dL (7.8-10.44); Carbon Dioxide 24 mmol/L (22-29); Chloride 101 mmol/L (98-107); Estimated GFR 60; Glucose 104 mg/dL (70-105); Potassium 4.2 mmol/L (3.5-5.1); Sodium 138 mmol/L (136-145)
[2022-06-26 12:29] LABS: Bilirubin Neg (Negative); Blood, Urine Negative (Negative); Clarity Clear (Clear); Glucose, Urine (Dipstick) Normal (Negative); Ketone, Urine Negative (Negative); Leukocyte 25 (Negative); Nitrite Negative (Negative); Protein, Urine (Dipstick) Negative (Neg-Trace); Urobilinogen Normal mg/dL (Less than 2); pH, Urine 6.5 (5.0-9.0)
== END 2022-06-26 10:12 | disposition home or self-care (01) ==
LOC: LABBT 10:11
PROVIDERS: ATTEND Orthopaedic Surgery Hand Surgery
DX: Z01.818 Encounter for other preprocedural examination (principal); G56.22 Lesion of ulnar nerve, left upper limb; G56.82 Other specified mononeuropathies of left upper limb
CPT/HCPCS: 80048; 81003; 85025; 93005; 93010

== ENCOUNTER 2022-07-01 06:05 | Day surgery (SDC) | payer OTHER, MEDICAID ==
[2022-06-26 10:59] VITALS: BMI 43.8
[2022-07-01] MEDS ORDERED: fentaNYL PF 100 MCG/2 ML SYRINGE ONE (09:05)
[2022-07-01] MEDS ORDERED: CEFAZOLIN 2 GM VIAL ONE (09:06)
[2022-07-01] MEDS ORDERED: Sodium Chloride 0.9% 100 ML ONE (09:06)
[2022-07-01] MEDS ORDERED: PROPOFOL 200 MG/20 ML VIAL ONE (09:18)
[2022-07-01] MEDS ORDERED: PHENYLEPHRINE-NS 100 MCG/ML 10 ML SYRINGE ONE (09:18)
[2022-07-01] MEDS ORDERED: Ketorolac Tromethamine 30 MG/ML VIAL ONE ×2 (09:18→12:08)
[2022-07-01] MEDS ORDERED: Dexamethasone 20 MG/5 ML VIAL ONE (09:18)
[2022-07-01] MEDS ORDERED: Lidocaine 1% PF 5 ML VIAL ONE (09:18)
[2022-07-01] MEDS ORDERED: Ondansetron PF 4 MG/2 ML Vial ONE (09:18)
[2022-07-01] MEDS ORDERED: Bupivacaine PF 0.5% 30 ML VIAL ONE (10:15)
[2022-07-01] MEDS ORDERED: Bacitracin Zinc Ointment 30 gm TUBE ONE (10:15)
[2022-07-01] MEDS ORDERED: Ipratropium/Albuterol 3 ML NEB ONE (12:47)
[2022-07-01 13:52] LABS: Actual Bicarbonate (HCO3a) 24.8 mEq/L (22-28); Base Excess (BEa) 0.3 mEq/L (-2.0 to +3.0); CO2 Tension 39.8 mmHg (35.0-45.0); Calcium, Ionized (arterial) 1.12 mmol/L (1.12-1.30); Carboxyhemoglobin (COHb) 1.1 gm% (0.0-3.0); Hematocrit-ABG 40 % (36.0-47.0); Hemoglobin (Hb) 13.5 g/dL (12.0-16.0); O2 Tension (PaO2), arterial 71.2 mmHg (80.0-100.0); Potassium - ABG Lab 3.84 mmol/L (3.70-5.30); pH, Arterial 7.413 (7.35-7.45)
[2022-07-01 13:55] LABS: Puncture Site RRA
== END 2022-07-01 14:40 | disposition home or self-care (01) ==
LOC: SDC 06:05
PROVIDERS: ATTEND Orthopaedic Surgery Hand Surgery
PROC: 01N50ZZ Release Median Nerve, Open Approach (ICD-10-PCS; principal; 2022-07-01)
PROC: 01N40ZZ Release Ulnar Nerve, Open Approach (ICD-10-PCS; 2022-07-01)
DX: G56.23 Lesion of ulnar nerve, bilateral upper limbs (principal); G56.02 Carpal tunnel syndrome, left upper limb; M18.0 Bilateral primary osteoarthritis of first carpometacarpal joints; M24.541 Contracture, right hand; G89.29 Other chronic pain; M54.9 Dorsalgia, unspecified; J45.909 Unspecified asthma, uncomplicated; E66.01 Morbid (severe) obesity due to excess calories; Z68.41 Body mass index [BMI] 40.0-44.9, adult; Z86.16 Personal history of COVID-19; Z87.891 Personal history of nicotine dependence; Z79.82 Long term (current) use of aspirin; Z79.899 Other long term (current) drug therapy; Z88.5 Allergy status to narcotic agent; Z98.1 Arthrodesis status
CPT/HCPCS: 36600; 82805; J1100; J1885; J2405; J2704; J3490; J7620; S0020

== ENCOUNTER 2022-07-02 11:32 | Inpatient (IN) | payer OTHER, MEDICAID ==
[~2022-07-02 11:32] MED LIST changes: +Iopamidol 370 76% 100 ML VIAL ONE; -Iopamidol-370 76% 500 ML 1 ML ONE
[2022-07-02] MEDS ORDERED: Vancomycin 1 GM/200 ML (FROZEN) BAG ONE (14:14)
[2022-07-02] MEDS ORDERED: Bacitracin Zinc Ointment 30 gm TUBE ONE (15:15)
[2022-07-02] MEDS ORDERED: Vancomycin 1 GM VIAL ONE (15:15)
[2022-07-02] MEDS ORDERED: Bupivacaine PF 0.5% 30 ML VIAL ONE (15:15)
[2022-07-02] MEDS ORDERED: fentaNYL PF 100 MCG/2 ML SYRINGE ONE (16:19)
[2022-07-02] MEDS ORDERED: Lidocaine 1% PF 5 ML VIAL ONE (16:42)
[2022-07-02] MEDS ORDERED: Ketorolac Tromethamine 30 MG/ML VIAL ONE (16:42)
[2022-07-02] MEDS ORDERED: PROPOFOL 200 MG/20 ML VIAL ONE (16:42)
[2022-07-02] MEDS ORDERED: Ondansetron PF 4 MG/2 ML Vial ONE (16:42)
[2022-07-02] MEDS ORDERED: Dexamethasone 20 MG/5 ML VIAL ONE (16:42)
[2022-07-02] MEDS ORDERED: Milk Of Magnesia 30 ML UDCUP PO PRN (16:50)
[2022-07-02] MEDS ORDERED: TETANUS, DIPHTHERIA TOX,ADULT (TDVAX) 0.5 ML VIAL IM ONE (16:50)
[2022-07-02] MEDS ORDERED: Morphine 4 MG/ML VIAL SLOW IVP PRN (16:50)
[2022-07-02] MEDS ORDERED: Bisacodyl 10 MG SUPP PR PRN (16:50)
[2022-07-02] MEDS ORDERED: traMADol HCl 50 MG TAB PO PRN (16:50)
[2022-07-02] MEDS ORDERED: Promethazine HCl 25 MG/ML VIAL IM PRN ×2 (16:50→18:12)
[2022-07-02] MEDS ORDERED: Communication Order-Pharmacy FS SCH (17:00)
[2022-07-02] MEDS ORDERED: Thrombin 5000 UNITS/5 ML VIAL ONE (17:24)
[2022-07-02] MEDS ORDERED: Ondansetron HCl/PF 4 MG/2 ML Vial IVP PRN (18:12)
[2022-07-02] MEDS ORDERED: Ipratropium/Albuterol 3 ML NEB ONE (18:46)
[2022-07-02] MEDS ORDERED: Ipratropium/Albuterol 3 ML NEB NEB SCH (19:00)
[2022-07-02 19:20] LABS: #Monocytes 1.1 thou/uL (0.11-0.59); #Neutrophils 11.5 thou/uL (1.40-6.50); %Basophils 0.2 % (0.0-1.0); %Eosinophils 0.2 % (0.0-10.0); %Lymphocytes 6.8 % (21.0-51.0); %Monocytes 7.7 % (0.0-10.0); %Neutrophils 84.6 % (42.0-75.0); Mean Corpuscular HGB CONC 31.9 g/dL (32.0-36.0); Mean Corpuscular Hemoglobin 25.8 pg (27.0-31.0); Mean Corpuscular Volume 80.8 fl (78.0-98.0); Mean Platelet Volume 9.8 fL (7.4-10.4); Platelet Count 281 10x3/uL (130-400); RBC Distribution Width 14.6 % (11.5-14.5); Red Blood Cell (RBC) Count 4.27 mill/uL (4.20-5.40); White Blood Cell (WBC) Count 13.6 10x3/uL (4.8-10.8)
[2022-07-02] MEDS ORDERED: fentaNYL 50 mcg/mL 1 mL Vial ONE (19:30)
[2022-07-02 20:33] LABS: SARS-CoV-2 NAA Rapid Test DETECTED (NotDetected)
[2022-07-02] MEDS ORDERED: Benzonatate 100 MG CAP PO PRN (20:39)
[2022-07-02] MEDS ORDERED: Acetaminophen 325 MG TAB PO PRN (20:39)
[2022-07-02] MEDS ORDERED: Albuterol 200 PUFF (6.7GM INHALER) INH PRN (20:39)
[2022-07-02 21:11] LABS: ALT (SGPT) 14 U/L (8-55); AST (SGOT) 21 U/L (5-34); Albumin 4.1 g/dL (3.5-5.0); Alkaline Phosphatase 70 U/L (40-110); Anion Gap 17 mmol/L (10-20); BUN (Urea Nitrogen) 13 mg/dL (9.8-20.1); Bilirubin, Total 0.4 mg/dL (0.2-1.2); Calc. Creatinine Clearance 0 mL/min (70-130); Calcium 8.8 mg/dL (7.8-10.44); Carbon Dioxide 22 mmol/L (22-29); Chloride 96 mmol/L (98-107); Estimated GFR 50; Globulin 2.9 g/dL (2.4-3.5); Glucose 135 mg/dL (70-105); Magnesium 1.8 mg/dL (1.6-2.6); Potassium 3.7 mmol/L (3.5-5.1); Sodium 131 mmol/L (136-145)
[2022-07-02] MEDS ORDERED: REMDESIVIR 200 MG in Sodium Chloride 0.9% 250 ML 210 ML IV SCH (22:00)
[2022-07-02] MEDS ORDERED: Sodium Chloride 0.9% 1,000 ML IV SCH (22:00)
[2022-07-02 22:16] VITALS: BMI 46.3
[2022-07-02] MEDS: Gentamicin 80 MG/2 ML VIAL IM SCH (22:30)
[2022-07-02] MEDS: rOPINIRole HCl 1 MG TAB PO SCH (22:30)
[2022-07-02] MEDS: Gabapentin 400 MG CAP PO SCH (22:31)
[2022-07-02] MEDS: QUEtiapine 300 MG TAB PO SCH (22:34)
[2022-07-02] MEDS: Donepezil HCl 5 MG TAB PO SCH (22:34)
[2022-07-02] MEDS: Benztropine 1 MG TAB PO SCH (22:34)
[2022-07-02] MEDS: Methocarbamol 500 MG TAB PO SCH (22:35)
[2022-07-02] MEDS: Aspirin 81 mg Enteric Coated Tablet PO SCH (22:35)
[2022-07-03] MEDS ORDERED: Vancomycin 1 GM in Premix Bag 1 BAG IVPB SCH (02:00)
[2022-07-03 05:22] LABS: #Monocytes 0.5 thou/uL (0.11-0.59); #Neutrophils 8.4 thou/uL (1.40-6.50); %Basophils 0.1 % (0.0-1.0); %Lymphocytes 7.1 % (21.0-51.0); %Monocytes 4.8 % (0.0-10.0); %Neutrophils 87.4 % (42.0-75.0); Hemoglobin 10.5 g/dL (12.0-16.0); Mean Corpuscular HGB CONC 32.5 g/dL (32.0-36.0); Mean Corpuscular Hemoglobin 26.4 pg (27.0-31.0); Mean Corpuscular Volume 81.4 fl (78.0-98.0); Mean Platelet Volume 9.9 fL (7.4-10.4); Platelet Count 249 10x3/uL (130-400); RBC Distribution Width 14.6 % (11.5-14.5); Red Blood Cell (RBC) Count 3.97 mill/uL (4.20-5.40); White Blood Cell (WBC) Count 9.6 10x3/uL (4.8-10.8)
[2022-07-03] MEDS: Gentamicin 80 MG/2 ML VIAL IM SCH ×3 (06:37→22:25)
[2022-07-03] MEDS: Albuterol 200 PUFF (6.7GM INHALER) INH SCH ×3 (06:39→18:17)
[2022-07-03] MEDS ORDERED: VITAMIN D3 PO SCH (09:00)
[2022-07-03] MEDS ORDERED: Aspirin 81 mg Enteric Coated Tablet PO SCH (09:00)
[2022-07-03] MEDS ORDERED: [UNRECOGNIZED DRUG - OTHER] PO SCH (09:00)
[2022-07-03] MEDS: Hydrochlorothiazide 25 MG TAB PO SCH (09:09)
[2022-07-03] MEDS: Benztropine 1 MG TAB PO SCH ×2 (09:10→21:37)
[2022-07-03] MEDS: Methocarbamol 500 MG TAB PO SCH ×2 (09:10→21:35)
[2022-07-03] MEDS: DULoxetine 60 MG CAP PO SCH (09:11)
[2022-07-03] MEDS: Cholecalciferol 1,000 UNITS (25 MCG) TAB PO SCH (09:11)
[2022-07-03] MEDS: Aspirin 81 mg Enteric Coated Tablet PO SCH ×2 (09:11→21:35)
[2022-07-03] MEDS: Multivitamin W/ Minerals 1 TAB PO SCH (09:11)
[2022-07-03] MEDS: Ferrous Gluconate 324 MG TAB PO SCH (09:11)
[2022-07-03] MEDS: Ascorbic Acid 500 mg Chewable Tablet PO SCH (09:11)
[2022-07-03] MEDS: Amlodipine 10 MG TAB PO SCH (09:12)
[2022-07-03] MEDS: Gabapentin 400 MG CAP PO SCH ×3 (09:12→21:37)
[2022-07-03] MEDS: Dexamethasone 4 mg/ml Vial SLOW IVP SCH (09:13)
[2022-07-03] MEDS: HYDROcodone/Acetaminophen 5/325 mg Tablet PO PRN ×2 (12:26→21:34)
[2022-07-03] MEDS: REMDESIVIR 100 MG in Sodium Chloride 0.9% 250 ML 230 ML IV SCH (21:33)
[2022-07-03] MEDS: rOPINIRole HCl 1 MG TAB PO SCH (21:36)
[2022-07-03] MEDS: Donepezil HCl 5 MG TAB PO SCH (21:36)
[2022-07-03] MEDS: QUEtiapine 300 MG TAB PO SCH (21:36)
[2022-07-04] MEDS: Gentamicin 80 MG/2 ML VIAL IM SCH ×3 (05:54→21:50)
[2022-07-04] MEDS: Albuterol 200 PUFF (6.7GM INHALER) INH SCH ×3 (06:07→18:26)
[2022-07-04] MEDS: Dexamethasone 4 mg/ml Vial SLOW IVP SCH (09:45)
[2022-07-04] MEDS: Ferrous Gluconate 324 MG TAB PO SCH (09:45)
[2022-07-04] MEDS: Ascorbic Acid 500 mg Chewable Tablet PO SCH (09:45)
[2022-07-04] MEDS: Multivitamin W/ Minerals 1 TAB PO SCH (09:46)
[2022-07-04] MEDS: DULoxetine 60 MG CAP PO SCH (09:46)
[2022-07-04] MEDS: Methocarbamol 500 MG TAB PO SCH ×2 (09:46→21:48)
[2022-07-04] MEDS: Benztropine 1 MG TAB PO SCH ×2 (09:46→21:40)
[2022-07-04] MEDS: Cholecalciferol 1,000 UNITS (25 MCG) TAB PO SCH (09:46)
[2022-07-04] MEDS: Aspirin 81 mg Enteric Coated Tablet PO SCH ×2 (09:46→21:38)
[2022-07-04] MEDS: Hydrochlorothiazide 25 MG TAB PO SCH (09:47)
[2022-07-04] MEDS: Gabapentin 400 MG CAP PO SCH ×3 (09:47→21:38)
[2022-07-04] MEDS: Amlodipine 10 MG TAB PO SCH (09:49)
[2022-07-04] MEDS: HYDROcodone/Acetaminophen 5/325 mg Tablet PO PRN ×2 (12:08→21:49)
[2022-07-04] MEDS: INGREZZA PO SCH (14:02)
[2022-07-04] MEDS: HYDROcodone/Acetaminophen 10/325 mg Tablet PO PRN (15:40)
[2022-07-04] MEDS: Donepezil HCl 5 MG TAB PO SCH (21:39)
[2022-07-04] MEDS: QUEtiapine 300 MG TAB PO SCH (21:43)
[2022-07-04] MEDS: rOPINIRole HCl 1 MG TAB PO SCH (21:43)
[2022-07-04] MEDS: REMDESIVIR 100 MG in Sodium Chloride 0.9% 250 ML 230 ML IV SCH (21:55)
[2022-07-05] MEDS: HYDROcodone/Acetaminophen 5/325 mg Tablet PO PRN ×2 (05:40→22:21)
[2022-07-05] MEDS: Gentamicin 80 MG/2 ML VIAL IM SCH (05:41)
[2022-07-05] MEDS: Albuterol 200 PUFF (6.7GM INHALER) INH SCH ×3 (05:53→18:59)
[2022-07-05] MEDS ORDERED: Valbenazine Tosylate [Ingrezza] 40 MG PO SCH (09:00)
[2022-07-05] MEDS ORDERED: VALBENAZINE TOSYLATE 40 MG PO SCH (09:00)
[2022-07-05] MEDS: Methocarbamol 500 MG TAB PO SCH ×2 (09:28→22:06)
[2022-07-05] MEDS: Multivitamin W/ Minerals 1 TAB PO SCH (09:28)
[2022-07-05] MEDS: Hydrochlorothiazide 25 MG TAB PO SCH (09:29)
[2022-07-05] MEDS: Gabapentin 400 MG CAP PO SCH ×3 (09:29→22:08)
[2022-07-05] MEDS: DULoxetine 60 MG CAP PO SCH (09:30)
[2022-07-05] MEDS: Ferrous Gluconate 324 MG TAB PO SCH (09:30)
[2022-07-05] MEDS: Benztropine 1 MG TAB PO SCH ×2 (09:30→22:09)
[2022-07-05] MEDS: Ascorbic Acid 500 mg Chewable Tablet PO SCH (09:30)
[2022-07-05] MEDS: Cholecalciferol 1,000 UNITS (25 MCG) TAB PO SCH (09:30)
[2022-07-05] MEDS: Aspirin 81 mg Enteric Coated Tablet PO SCH ×2 (09:30→22:08)
[2022-07-05] MEDS: Amlodipine 10 MG TAB PO SCH (09:30)
[2022-07-05] MEDS: Dexamethasone 4 mg/ml Vial SLOW IVP SCH (09:31)
[2022-07-05] MEDS: HYDROcodone/Acetaminophen 10/325 mg Tablet PO PRN (14:53)
[2022-07-05] MEDS: rOPINIRole HCl 1 MG TAB PO SCH (22:05)
[2022-07-05] MEDS: QUEtiapine 300 MG TAB PO SCH (22:06)
[2022-07-05] MEDS: Donepezil HCl 5 MG TAB PO SCH (22:08)
[2022-07-05] MEDS: REMDESIVIR 100 MG in Sodium Chloride 0.9% 250 ML 230 ML IV SCH (22:10)
[2022-07-06] MEDS: Albuterol 200 PUFF (6.7GM INHALER) INH SCH ×3 (07:00→18:43)
[2022-07-06] MEDS: Multivitamin W/ Minerals 1 TAB PO SCH (09:07)
[2022-07-06] MEDS: Gabapentin 400 MG CAP PO SCH ×3 (09:08→22:07)
[2022-07-06] MEDS: Hydrochlorothiazide 25 MG TAB PO SCH (09:08)
[2022-07-06] MEDS: DULoxetine 60 MG CAP PO SCH (09:08)
[2022-07-06] MEDS: Aspirin 81 mg Enteric Coated Tablet PO SCH ×2 (09:09→22:04)
[2022-07-06] MEDS: Amlodipine 10 MG TAB PO SCH (09:09)
[2022-07-06] MEDS: Benztropine 1 MG TAB PO SCH ×2 (09:09→22:05)
[2022-07-06] MEDS: Methocarbamol 500 MG TAB PO SCH ×2 (09:09→22:05)
[2022-07-06] MEDS: Ascorbic Acid 500 mg Chewable Tablet PO SCH (09:10)
[2022-07-06] MEDS: HYDROcodone/Acetaminophen 10/325 mg Tablet PO PRN ×2 (09:10→22:06)
[2022-07-06] MEDS: Cholecalciferol 1,000 UNITS (25 MCG) TAB PO SCH (09:10)
[2022-07-06] MEDS: Ferrous Gluconate 324 MG TAB PO SCH (09:10)
[2022-07-06] MEDS: Dexamethasone 4 mg/ml Vial SLOW IVP SCH (09:20)
[2022-07-06] MEDS: Donepezil HCl 5 MG TAB PO SCH (22:04)
[2022-07-06] MEDS: QUEtiapine 300 MG TAB PO SCH (22:06)
[2022-07-06] MEDS: rOPINIRole HCl 1 MG TAB PO SCH (22:08)
[2022-07-06] MEDS: REMDESIVIR 100 MG in Sodium Chloride 0.9% 250 ML 230 ML IV SCH (22:09)
[2022-07-07] MEDS: Albuterol 200 PUFF (6.7GM INHALER) INH SCH (06:31)
[2022-07-07] MEDS ORDERED: Dexamethasone 4 MG TAB PO SCH (08:00)
[2022-07-07] MEDS: Methocarbamol 500 MG TAB PO SCH (09:21)
[2022-07-07] MEDS: Gabapentin 400 MG CAP PO SCH (09:21)
[2022-07-07] MEDS: Multivitamin W/ Minerals 1 TAB PO SCH (09:21)
[2022-07-07] MEDS: Cholecalciferol 1,000 UNITS (25 MCG) TAB PO SCH (09:21)
[2022-07-07] MEDS: Benztropine 1 MG TAB PO SCH (09:22)
[2022-07-07] MEDS: DULoxetine 60 MG CAP PO SCH (09:23)
[2022-07-07] MEDS: Ferrous Gluconate 324 MG TAB PO SCH (09:23)
[2022-07-07] MEDS: Hydrochlorothiazide 25 MG TAB PO SCH (09:23)
[2022-07-07] MEDS: Ascorbic Acid 500 mg Chewable Tablet PO SCH (09:24)
[2022-07-07] MEDS: Amlodipine 10 MG TAB PO SCH (09:24)
[2022-07-07] MEDS: Aspirin 81 mg Enteric Coated Tablet PO SCH (09:25)
[2022-07-07 12:37] VITALS: BP 128/83; TEMP 98.1
== END 2022-07-07 13:00 | disposition home health service (06) | DRG 906 ==
LOC: SDC 11:32 → SURG B 16:54 → OBSVTOIN 07-03 13:27
PROVIDERS: ADMIT Orthopaedic Surgery Hand Surgery; ATTEND Orthopaedic Surgery Hand Surgery
PROC: 01N50ZZ Release Median Nerve, Open Approach (ICD-10-PCS; 2022-07-01)
PROC: 01N40ZZ Release Ulnar Nerve, Open Approach (ICD-10-PCS; 2022-07-01)
PROC: 0MT40ZZ Resection of Left Elbow Bursa and Ligament, Open Approach (ICD-10-PCS; principal; 2022-07-02)
PROC: 8E0ZXY6 Isolation (ICD-10-PCS; 2022-07-02)
PROC: XW033E5 Introduction of Remdesivir Anti-infective into Peripheral Vein, Percutaneous Approach, New Technology Group 5 (ICD-10-PCS; 2022-07-02)
DX: T81.32XA Disruption of internal operation (surgical) wound, not elsewhere classified, initial encounter (principal); J18.9 Pneumonia, unspecified organism; J96.01 Acute respiratory failure with hypoxia; U07.1 COVID-19; Z68.42 Body mass index [BMI] 45.0-49.9, adult; Y83.8 Other surgical procedures as the cause of abnormal reaction of the patient, or of later complication, without mention of misadventure at the time of the procedure; N18.30 Chronic kidney disease, stage 3 unspecified; I12.9 Hypertensive chronic kidney disease with stage 1 through stage 4 chronic kidney disease, or unspecified chronic kidney disease; K21.9 Gastro-esophageal reflux disease without esophagitis; G47.30 Sleep apnea, unspecified; F20.9 Schizophrenia, unspecified; J45.909 Unspecified asthma, uncomplicated; D63.1 Anemia in chronic kidney disease; F32.A Depression, unspecified; Z96.653 Presence of artificial knee joint, bilateral; G20 Parkinson's disease; F02.80 Dementia in other diseases classified elsewhere, unspecified severity, without behavioral disturbance, psychotic disturbance, mood disturbance, and anxiety; E66.01 Morbid (severe) obesity due to excess calories; Z87.442 Personal history of urinary calculi; Z88.5 Allergy status to narcotic agent; Z86.711 Personal history of pulmonary embolism; Z98.41 Cataract extraction status, right eye; Z98.42 Cataract extraction status, left eye; Z98.1 Arthrodesis status; Z82.49 Family history of ischemic heart disease and other diseases of the circulatory system; Z83.3 Family history of diabetes mellitus; G24.01 Drug induced subacute dyskinesia; G56.23 Lesion of ulnar nerve, bilateral upper limbs; G56.02 Carpal tunnel syndrome, left upper limb; M18.0 Bilateral primary osteoarthritis of first carpometacarpal joints; M24.541 Contracture, right hand; G89.29 Other chronic pain; M54.9 Dorsalgia, unspecified; Z87.891 Personal history of nicotine dependence; Z79.82 Long term (current) use of aspirin; Z79.899 Other long term (current) drug therapy
CPT/HCPCS: 36415; 36600; 71045; 71275; 80053; 82805; 83735; 83880; 84145; 85025; 85379; 90714; 94640; J0248; J1100; J1580; J1885; J2405; J2704; J3010; J3370; J3370-JW; J3490; J7050; J7620; J8540; Q9967; S0020; U0002

== ENCOUNTER 2023-03-13 15:07 | Emergency (ER) | payer OTHER, MEDICAID ==
[2023-03-13 16:01] LABS: #Basophils 0.1 thou/uL (0.0-0.2); #Eosinphils 0.3 thou/uL (0.0-0.7); #Monocytes 0.5 thou/uL (0.11-0.59); #Neutrophils 3.6 thou/uL (1.40-6.50); %Basophils 0.9 % (0.0-1.0); %Eosinophils 5.9 % (0.0-10.0); %Lymphocytes 17.4 % (21.0-51.0); %Monocytes 9.9 % (0.0-10.0); %Neutrophils 65.5 % (42.0-75.0); Hematocrit 40.6 % (36.0-47.0); Mean Corpuscular Hemoglobin 28.1 pg (27.0-31.0); Mean Corpuscular Volume 87.9 fl (78.0-98.0); Mean Platelet Volume 9.5 fL (7.4-10.4); Platelet Count 209 10x3/uL (130-400); Red Blood Cell (RBC) Count 4.62 mill/uL (4.20-5.40); White Blood Cell (WBC) Count 5.5 10x3/uL (4.8-10.8)
[2023-03-13 16:29] LABS: ALT (SGPT) 10 U/L (8-55); AST (SGOT) 14 U/L (5-34); Albumin 4.1 g/dL (3.5-5.0); Alkaline Phosphatase 87 U/L (40-110); Anion Gap 12 mmol/L (10-20); BUN (Urea Nitrogen) 10 mg/dL (9.8-20.1); Bilirubin, Total 0.4 mg/dL (0.2-1.2); Calc. Creatinine Clearance 0 mL/min (70-130); Calcium 8.7 mg/dL (7.8-10.44); Carbon Dioxide 25 mmol/L (22-29); Chloride 103 mmol/L (98-107); Estimated GFR 57; Globulin 2.7 g/dL (2.4-3.5); Glucose 102 mg/dL (70-105); Lipase 15 U/L (8-78); Potassium 4.1 mmol/L (3.5-5.1); Protein, Total 6.8 g/dL (6.0-8.3); Sodium 136 mmol/L (136-145)
[2023-03-13 16:31] LABS: Troponin I Less than 0.010 ng/mL (< 0.028)
[2023-03-13] MEDS ORDERED: Ketorolac Tromethamine 30 MG (1 mL) VIAL ONE (16:42)
[2023-03-13 20:18] LABS: SARS-CoV-2 NAA Rapid Test Not Detected (NotDetected)
== END 2023-03-13 18:17 ==
LOC: ERS 15:07
DX: M94.0 Chondrocostal junction syndrome [Tietze] (principal); I10 Essential (primary) hypertension; Z79.82 Long term (current) use of aspirin; Z87.891 Personal history of nicotine dependence; Z79.899 Other long term (current) drug therapy
CPT/HCPCS: 0240U; 71045; 80053; 83690; 84484; 85025; 93005; 96374; 99285; 36415; J1885

== ENCOUNTER 2023-04-15 06:59 | Outpatient (CLI) | payer OTHER, MEDICAID | END 2023-04-15 07:00 | disposition home or self-care (01) | LOC: BICMRI 06:59 | PROVIDERS: ATTEND Orthopaedic Surgery Hand Surgery | DX: G56.02 Carpal tunnel syndrome, left upper limb (principal); G56.21 Lesion of ulnar nerve, right upper limb; R19.00 Intra-abdominal and pelvic swelling, mass and lump, unspecified site; M87.9 Osteonecrosis, unspecified; R10.9 Unspecified abdominal pain; M19.041 Primary osteoarthritis, right hand; M19.031 Primary osteoarthritis, right wrist; M25.832 Other specified joint disorders, left wrist; M21.832 Other specified acquired deformities of left forearm; R60.0 Localized edema; Z87.442 Personal history of urinary calculi; Z98.890 Other specified postprocedural states | CPT/HCPCS: 74018; 76705 ==

== ENCOUNTER 2023-06-29 14:51 | Inpatient (IN) | payer OTHER, MEDICAID ==
[~2023-06-29 14:51] MED LIST changes: -Iopamidol 370 76% 100 ML VIAL ONE; +Iopamidol-370 76% 500 ML MDV (1 ML CHARGE) ONE
[2023-06-29 15:31] LABS: #Basophils 0.04 10x3/uL (0.0-0.2); %Basophils 0.5 % (0.0-1.0); %Eosinophils 3.3 % (0.0-10.0); %Monocytes 8.7 % (0.0-10.0); Hematocrit 40.5 % (36.0-47.0); Mean Corpuscular HGB CONC 32.1 g/dL (32.0-36.0); Mean Corpuscular Hemoglobin 27.8 pg (27.0-31.0); Mean Corpuscular Volume 86.7 fL (78.0-98.0); Mean Platelet Volume 9.8 fL (7.4-10.4); Platelet Count 265 10x3/uL (130-400); RBC Distribution Width 13.9 % (11.5-14.5); Red Blood Cell (RBC) Count 4.67 mill/uL (4.20-5.40)
[2023-06-29 15:48] LABS: Globulin 3.7 g/dL (2.4-3.5)
[2023-06-29 15:53] LABS: ALT (SGPT) 18 U/L (8-55); AST (SGOT) 35 U/L (5-34); Albumin 4.3 g/dL (3.5-5.0); Alkaline Phosphatase 90 U/L (40-110); Anion Gap 16 mmol/L (10-20); BUN (Urea Nitrogen) 10 mg/dL (9.8-20.1); Bilirubin, Total 0.5 mg/dL (0.2-1.2); Calc. Creatinine Clearance 0 mL/min (70-130); Calcium 9.6 mg/dL (7.8-10.44); Carbon Dioxide 27 mmol/L (22-29); Chloride 98 mmol/L (98-107); Estimated GFR 53; Glucose 91 mg/dL (70-105); Lipase 10 U/L (8-78); Magnesium 1.8 mg/dL (1.6-2.6); Potassium 3.3 mmol/L (3.5-5.1); Sodium 138 mmol/L (136-145)
[2023-06-29 15:54] LABS: INR-International Normal Ratio 1.1; PTT 30.3 sec (22.9-36.1); Prothrombin Time 13.8 sec (12.0-14.7)
[2023-06-29 15:56] LABS: Troponin I Less than 0.010 ng/mL (< 0.028)
[2023-06-29 16:48] LABS: Actual Bicarbonate (HCO3v) 29.1 mEq/L (22-28); Analyzer IN Cardio ER; Base Excess 2.7 mEq/L (-2.0 to +3.0); Calcium, Ionized (venous) 1.14 mmol/L (1.16-1.32); Chloride (VBG) 97 mmol/L (98-106); Hematocrit-VBG 40 % (36.0-47.0); Hemoglobin (Hb) 13.5 g/dL (11.7-16.0); Potassium (VBG) 3.57 mmol/L (3.70-5.30); Sodium 140 mmol/L (133-146); pH (venous) 7.367 (7.32-7.43)
[2023-06-29] MEDS ORDERED: Aspirin Chewable 81 MG TAB ONE (16:58)
[2023-06-29] MEDS ORDERED: Nitroglycerin 0.4 MG TAB 1 EACH ONE ×2 (16:58→16:59)
[2023-06-29] MEDS ORDERED: Potassium Chloride 20 MEQ TAB ONE (17:19)
[2023-06-29] MEDS ORDERED: cefTRIAXone (ROCEPHIN) 2 GM VIAL ONE (17:19)
[2023-06-29] MEDS ORDERED: Azithromycin 500 MG VIAL ONE (17:20)
[2023-06-29] MEDS ORDERED: Sodium Chloride 0.9% 100 ML ONE (17:20)
[2023-06-29 17:41] LABS: Bacteria/HPF None Seen HPF (None Seen); Bilirubin Negative (Negative); Blood, Urine Negative (Negative); CAUTI Indications for Culture Dysuria,urgency,freq; Clarity Clear (Clear); Glucose, Urine (Dipstick) Normal (Negative); Ketone, Urine Negative (Negative); Leukocyte 75 Leu/uL (Negative); Nitrite Negative (Negative); Protein, Urine (Dipstick) Negative (Neg-Trace); RBC/HPF 0-3 HPF (0-3); Specific Gravity, Urine 1.015 (1.002-1.036); Squamous Epithelial 0-3 HPF (0-3); Urobilinogen Normal mg/dL (Less than 2); pH, Urine 5.5 (5.0-9.0)
[2023-06-29 17:43] LABS: Urine Culture Reflex No No
[2023-06-29] MEDS ORDERED: Acetaminophen 325 MG TAB PO PRN (19:17)
[2023-06-29 20:11] LABS: Troponin I Less than 0.010 ng/mL (< 0.028)
[2023-06-29] MEDS ORDERED: Zinc Oxide 56.7 GM TUBE TP PRN (20:59)
[2023-06-29] MEDS: Clotrimazole 1 % Cream 30 GM TUBE TOP SCH (21:17)
[2023-06-29] MEDS: Zinc Oxide 20% Oint 30 GM TUBE TOP PRN (21:18)
[2023-06-29 21:40] VITALS: BMI 46.0
[2023-06-29] MEDS: Lactated Ringer's 1,000 ML IV SCH (22:05)
[2023-06-29 22:49] LABS: Troponin I Less than 0.010 ng/mL (< 0.028)
[2023-06-29] MEDS: HYDROcodone/Acetaminophen 10/325 mg Tablet PO PRN (23:04)
[2023-06-29] MEDS: Nystatin Cream 15 GM TUBE TOP SCH (23:04)
[2023-06-29] MEDS: Magnesium 2 GM/50 ML(in water) 2 GM in Premix 1 BAG IVPB SCH (23:08)
[2023-06-30 00:39] LABS: Legionella Urinary Ag Negative (Negative); Strep pneumo Urine Ag NEGATIVE (NEGATIVE)
[2023-06-30] MEDS: LevoFLOXacin 750 MG TAB PO SCH (06:00)
[2023-06-30] MEDS: Cholecalciferol 1,000 UNITS (25 MCG) TAB PO SCH (08:20)
[2023-06-30] MEDS: Aspirin 81 mg Enteric Coated Tablet PO SCH (08:20)
[2023-06-30] MEDS: Hydrochlorothiazide 25 MG TAB PO SCH (08:21)
[2023-06-30] MEDS: Famotidine 20 MG TAB PO SCH (08:21)
[2023-06-30] MEDS: Gabapentin 400 MG CAP PO SCH (08:21)
[2023-06-30] MEDS: Amlodipine 10 MG TAB PO SCH (08:21)
[2023-06-30] MEDS: Methocarbamol 500 MG TAB PO SCH (08:22)
[2023-06-30] MEDS: Ferrous Sulfate 325 MG TAB PO SCH (08:22)
[2023-06-30] MEDS: Benztropine 1 MG TAB PO SCH (08:22)
[2023-06-30] MEDS: DULoxetine 60 MG CAP PO SCH (08:22)
[2023-06-30] MEDS: Ascorbic Acid 500 mg Chewable Tablet PO SCH (08:22)
[2023-06-30] MEDS: Propranolol 40 MG TAB PO SCH (08:24)
[2023-06-30 08:45] LABS: Globulin 3.3 g/dL (2.4-3.5)
[2023-06-30 08:49] LABS: ALT (SGPT) 15 U/L (8-55); AST (SGOT) 29 U/L (5-34); Albumin 3.7 g/dL (3.5-5.0); Alkaline Phosphatase 76 U/L (40-110); Anion Gap 14 mmol/L (10-20); BUN (Urea Nitrogen) 10 mg/dL (9.8-20.1); Bilirubin, Total 0.5 mg/dL (0.2-1.2); Calc. Creatinine Clearance 134 mL/min (70-130); Calcium 9.2 mg/dL (7.8-10.44); Carbon Dioxide 26 mmol/L (22-29); Chloride 98 mmol/L (98-107); Estimated GFR 64; Glucose 87 mg/dL (70-105); Potassium 3.5 mmol/L (3.5-5.1); Sodium 134 mmol/L (136-145)
[2023-06-30] MEDS ORDERED: Azithromycin 250 MG TAB PO SCH ×2 (09:00→17:00)
[2023-06-30] MEDS ORDERED: VALBENAZINE TOSYLATE 40 MG PO SCH (09:00)
[2023-06-30 09:34] LABS: #Basophils 0.03 10x3/uL (0.0-0.2); %Basophils 0.5 % (0.0-1.0); %Eosinophils 4.5 % (0.0-10.0); %Lymphocytes 16.6 % (21.0-51.0); %Monocytes 10.2 % (0.0-10.0); %Neutrophils 67.9 % (42.0-75.0); Hematocrit 37.5 % (36.0-47.0); Hemoglobin 11.9 g/dL (12.0-16.0); Mean Corpuscular HGB CONC 31.7 g/dL (32.0-36.0); Mean Corpuscular Hemoglobin 27.2 pg (27.0-31.0); Mean Corpuscular Volume 85.6 fL (78.0-98.0); Mean Platelet Volume 10.4 fL (7.4-10.4); Platelet Count 233 10x3/uL (130-400); RBC Distribution Width 13.8 % (11.5-14.5); Red Blood Cell (RBC) Count 4.38 mill/uL (4.20-5.40)
[2023-06-30 11:04] LABS: Magnesium 2.1 mg/dL (1.6-2.6)
[2023-06-30] MEDS: Enoxaparin 40 MG (0.4 mL) SYRINGE SC SCH (11:14)
[2023-06-30] MEDS: Multivitamin W/ Minerals 1 TAB PO SCH (11:15)
[2023-06-30] MEDS ORDERED: cefTRIAXone\\ROCEPHIN 1 GM in Sodium Chloride 0.9% 100 ML IVPB SCH (17:00)
[2023-06-30] MEDS: Vancomycin (BATCH) 2.5 GM in Premix 1 BAG IVPB SCH (18:17)
[2023-06-30] MEDS: rOPINIRole HCl 1 MG TAB PO SCH (20:49)
[2023-06-30] MEDS: Donepezil HCl 5 MG TAB PO SCH (20:49)
[2023-06-30] MEDS: QUEtiapine 300 MG TAB PO SCH (20:50)
[2023-07-01 04:20] LABS: #Basophils 0.03 10x3/uL (0.0-0.2); %Basophils 0.4 % (0.0-1.0); %Eosinophils 3.9 % (0.0-10.0); %Lymphocytes 12.4 % (21.0-51.0); Hematocrit 39.6 % (36.0-47.0); Hemoglobin 12.6 g/dL (12.0-16.0); Mean Corpuscular HGB CONC 31.8 g/dL (32.0-36.0); Mean Corpuscular Hemoglobin 27.1 pg (27.0-31.0); Mean Corpuscular Volume 85.2 fL (78.0-98.0); Mean Platelet Volume 9.9 fL (7.4-10.4); Platelet Count 246 10x3/uL (130-400); RBC Distribution Width 13.7 % (11.5-14.5); Red Blood Cell (RBC) Count 4.65 mill/uL (4.20-5.40)
[2023-07-01 05:01] LABS: Globulin 3.3 g/dL (2.4-3.5)
[2023-07-01 05:05] LABS: ALT (SGPT) 13 U/L (8-55); AST (SGOT) 24 U/L (5-34); Albumin 3.8 g/dL (3.5-5.0); Alkaline Phosphatase 77 U/L (40-110); Anion Gap 14 mmol/L (10-20); BUN (Urea Nitrogen) 11 mg/dL (9.8-20.1); Bilirubin, Total 0.5 mg/dL (0.2-1.2); Calc. Creatinine Clearance 131 mL/min (70-130); Calcium 9.6 mg/dL (7.8-10.44); Carbon Dioxide 27 mmol/L (22-29); Chloride 98 mmol/L (98-107); Estimated GFR 63; Glucose 101 mg/dL (70-105); Potassium 3.7 mmol/L (3.5-5.1); Protein, Total 7.1 g/dL (6.0-8.3); Sodium 135 mmol/L (136-145)
[2023-07-01 05:06] LABS: Vancomycin, Random 25.8 ug/mL (See Comment)
[2023-07-01] MEDS: Vancomycin (BATCH) 1.5 GM in Premix 1 BAG IVPB SCH (16:39)
[2023-07-02 04:55] LABS: #Basophils Less than 0.03 10x3/uL (0.0-0.2); %Basophils 0.3 % (0.0-1.0); %Eosinophils 4.9 % (0.0-10.0); %Lymphocytes 16.7 % (21.0-51.0); %Monocytes 9.7 % (0.0-10.0); Hematocrit 35.6 % (36.0-47.0); Hemoglobin 11.4 g/dL (12.0-16.0); Mean Corpuscular Hemoglobin 27.6 pg (27.0-31.0); Mean Corpuscular Volume 86.2 fL (78.0-98.0); Platelet Count 209 10x3/uL (130-400); RBC Distribution Width 13.5 % (11.5-14.5); Red Blood Cell (RBC) Count 4.13 mill/uL (4.20-5.40)
[2023-07-02 05:09] LABS: Anion Gap 15 mmol/L (10-20); BUN (Urea Nitrogen) 12 mg/dL (9.8-20.1); Calc. Creatinine Clearance 137 mL/min (70-130); Carbon Dioxide 25 mmol/L (22-29); Chloride 98 mmol/L (98-107); Estimated GFR 66; Glucose 92 mg/dL (70-105); Potassium 3.3 mmol/L (3.5-5.1); Sodium 135 mmol/L (136-145)
[2023-07-02] MEDS: Polyethylene Glycol 3350 17 GM Packet PO SCH (09:34)
[2023-07-02] MEDS: Potassium Chloride 20 MEQ TAB PO SCH (11:39)
[2023-07-03 04:30] LABS: #Basophils 0.03 10x3/uL (0.0-0.2); %Basophils 0.6 % (0.0-1.0); %Eosinophils 6.8 % (0.0-10.0); %Lymphocytes 21.8 % (21.0-51.0); %Neutrophils 60.2 % (42.0-75.0); Hematocrit 37.4 % (36.0-47.0); Hemoglobin 11.7 g/dL (12.0-16.0); Mean Corpuscular HGB CONC 31.3 g/dL (32.0-36.0); Mean Corpuscular Hemoglobin 27.4 pg (27.0-31.0); Mean Corpuscular Volume 87.6 fL (78.0-98.0); Platelet Count 219 10x3/uL (130-400); RBC Distribution Width 13.6 % (11.5-14.5); Red Blood Cell (RBC) Count 4.27 mill/uL (4.20-5.40)
[2023-07-03 05:01] LABS: Anion Gap 16 mmol/L (10-20); BUN (Urea Nitrogen) 10 mg/dL (9.8-20.1); Calc. Creatinine Clearance 127 mL/min (70-130); Calcium 9.1 mg/dL (7.8-10.44); Carbon Dioxide 25 mmol/L (22-29); Chloride 100 mmol/L (98-107); Estimated GFR 60; Glucose 95 mg/dL (70-105); Potassium 3.5 mmol/L (3.5-5.1); Sodium 137 mmol/L (136-145)
[2023-07-03] MEDS ORDERED: Vancomycin 1 GM in Premix 1 BAG IVPB SCH (11:00)
[2023-07-03] MEDS ORDERED: HYDROcodone/Acetaminophen 10/325 mg Tablet PO PRN (11:00)
[2023-07-03 13:37] VITALS: BP 148/80; TEMP 98.6
== END 2023-07-03 13:30 | disposition home or self-care (01) | DRG 193 ==
LOC: ERS 14:51 → 2NO 17:34
PROVIDERS: ADMIT Family Medicine; ATTEND Family Medicine
DX: J18.9 Pneumonia, unspecified organism (principal); J96.21 Acute and chronic respiratory failure with hypoxia; R78.81 Bacteremia; Z68.42 Body mass index [BMI] 45.0-49.9, adult; D64.9 Anemia, unspecified; E87.6 Hypokalemia; E66.01 Morbid (severe) obesity due to excess calories; G47.33 Obstructive sleep apnea (adult) (pediatric); N18.31 Chronic kidney disease, stage 3a; M94.0 Chondrocostal junction syndrome [Tietze]; B95.7 Other staphylococcus as the cause of diseases classified elsewhere; Z88.5 Allergy status to narcotic agent; Z79.899 Other long term (current) drug therapy; Z96.652 Presence of left artificial knee joint; Z98.1 Arthrodesis status
CPT/HCPCS: 36415; 36416; 71045; 71275; 80048; 80053; 80202; 81001; 82805; 83605; 83690; 83735; 83880; 84145; 84484; 85025; 85610; 85730; 87040; 87077; 87081; 87086; 87149; 87449; 87899; 93005; 96365; 96366; 96367; J0456; J0696; J1650; J3370; J3475; J3490; J7120; Q9967

== ENCOUNTER 2023-07-28 15:00 | Emergency (ER) | payer OTHER, MEDICAID ==
[2023-07-28 15:57] LABS: #Basophils 0.04 10x3/uL (0.0-0.2); %Basophils 0.5 % (0.0-1.0); %Eosinophils 4.3 % (0.0-10.0); %Lymphocytes 13.4 % (21.0-51.0); %Monocytes 8.6 % (0.0-10.0); Hematocrit 41.2 % (36.0-47.0); Hemoglobin 13.1 g/dL (12.0-16.0); Mean Corpuscular HGB CONC 31.8 g/dL (32.0-36.0); Mean Corpuscular Hemoglobin 27.1 pg (27.0-31.0); Mean Corpuscular Volume 85.3 fL (78.0-98.0); Mean Platelet Volume 10.2 fL (7.4-10.4); Platelet Count 303 10x3/uL (130-400); Red Blood Cell (RBC) Count 4.83 mill/uL (4.20-5.40)
[2023-07-28 16:21] LABS: Troponin I 0.018 ng/mL (< 0.028)
[2023-07-28 16:29] LABS: ALT (SGPT) 16 U/L (8-55); AST (SGOT) 22 U/L (5-34); Albumin 4.1 g/dL (3.5-5.0); Alkaline Phosphatase 91 U/L (40-110); Anion Gap 16 mmol/L (10-20); BUN (Urea Nitrogen) 14 mg/dL (9.8-20.1); Bilirubin, Total 0.3 mg/dL (0.2-1.2); Calc. Creatinine Clearance 0 mL/min (70-130); Calcium 9.8 mg/dL (7.8-10.44); Carbon Dioxide 24 mmol/L (22-29); Chloride 102 mmol/L (98-107); Estimated GFR 46; Globulin 3.6 g/dL (2.4-3.5); Glucose 105 mg/dL (70-105); Lipase 9 U/L (8-78); Potassium 3.2 mmol/L (3.5-5.1); Protein, Total 7.7 g/dL (6.0-8.3); Sodium 139 mmol/L (136-145)
== END 2023-07-28 18:19 | disposition home or self-care (01) ==
LOC: ERS 15:00
DX: R07.9 Chest pain, unspecified (principal); I10 Essential (primary) hypertension; J45.909 Unspecified asthma, uncomplicated; E78.5 Hyperlipidemia, unspecified; F03.90 Unspecified dementia, unspecified severity, without behavioral disturbance, psychotic disturbance, mood disturbance, and anxiety; F41.9 Anxiety disorder, unspecified; F31.9 Bipolar disorder, unspecified; G20.A1 Parkinson's disease without dyskinesia, without mention of fluctuations; Z55.6 Problems related to health literacy; Z87.891 Personal history of nicotine dependence; Z79.82 Long term (current) use of aspirin; Z79.899 Other long term (current) drug therapy
CPT/HCPCS: 36415; 36600; 71045; 80053; 82805; 83690; 84484; 85025; 93005; 94010; 94726; 94729; 94760; 96360

== ENCOUNTER 2023-11-23 10:17 | Outpatient (CLI) | payer OTHER, MEDICAID ==
[2023-11-23 12:13] LABS: #Basophils 0.04 10x3/uL (0.0-0.2); %Basophils 0.6 % (0.0-1.0); %Eosinophils 3.3 % (0.0-10.0); %Lymphocytes 14.6 % (21.0-51.0); %Neutrophils 71.1 % (42.0-75.0); Hematocrit 40.9 % (36.0-47.0); Mean Corpuscular HGB CONC 31.8 g/dL (32.0-36.0); Mean Corpuscular Hemoglobin 26.5 pg (27.0-31.0); Mean Corpuscular Volume 83.3 fL (78.0-98.0); Mean Platelet Volume 9.6 fL (7.4-10.4); Platelet Count 290 10x3/uL (130-400); RBC Distribution Width 15.3 % (11.5-14.5); Red Blood Cell (RBC) Count 4.91 mill/uL (4.20-5.40)
[2023-11-23 12:32] LABS: Anion Gap 15 mmol/L (10-20); BUN (Urea Nitrogen) 9 mg/dL (9.8-20.1); Calc. Creatinine Clearance 0 mL/min (70-130); Calcium 9.8 mg/dL (7.8-10.44); Carbon Dioxide 27 mmol/L (22-29); Chloride 102 mmol/L (98-107); Estimated GFR 66; Glucose 94 mg/dL (70-105); Potassium 3.3 mmol/L (3.5-5.1); Sodium 141 mmol/L (136-145)
== END 2023-11-23 10:18 | disposition home or self-care (01) ==
LOC: LABBT 10:17
PROVIDERS: ATTEND Orthopaedic Surgery Hand Surgery
DX: Z01.818 Encounter for other preprocedural examination (principal); S63.8X2A Sprain of other part of left wrist and hand, initial encounter
CPT/HCPCS: 80048; 85025; 93005; 93010

== ENCOUNTER 2023-11-27 07:34 | Inpatient (IN) | payer MEDICARE, MEDICAID ==
[2023-11-23 10:42] VITALS: BMI 41.3
[2023-11-27] MEDS ORDERED: Famotidine/PF 20 mg/2ml Vial ONE (11:50)
[2023-11-27] MEDS ORDERED: fentaNYL 50 mcg/mL 1 mL Vial ONE ×2 (11:58→14:22)
[2023-11-27] MEDS ORDERED: PROPOFOL 20 ML ONE (11:58)
[2023-11-27] MEDS ORDERED: CEFAZOLIN 2 GM VIAL ONE (12:07)
[2023-11-27] MEDS ORDERED: Sodium Chloride 0.9% 100 ML ONE (12:08)
[2023-11-27] MEDS ORDERED: Lidocaine 1% PF 5 ML VIAL ONE (12:42)
[2023-11-27] MEDS ORDERED: Rocuronium Bromide 10 MG/ML (10ML VIAL) ONE (12:42)
[2023-11-27] MEDS ORDERED: SUGAMMADEX SODIUM 200 MG/2 ML VIAL ONE (13:03)
[2023-11-27] MEDS ORDERED: Dexamethasone 4 mg/ml Vial ONE (13:03)
[2023-11-27] MEDS ORDERED: Ondansetron PF 4 MG/2 ML Vial ONE ×2 (13:03→14:20)
[2023-11-27] MEDS ORDERED: Ketorolac Tromethamine 30 MG (1 mL) VIAL ONE (14:20)
[2023-11-27] MEDS ORDERED: CEFAZOLIN 1 GM VIAL ONE (15:57)
[2023-11-27] MEDS ORDERED: fentaNYL PF 100 MCG/2 ML SYRINGE ONE (16:06)
[2023-11-27] MEDS ORDERED: Bupivacaine PF 0.5% 30 ML VIAL ONE (16:08)
[2023-11-27] MEDS ORDERED: Ondansetron PF 4 MG/2 ML Vial SLOW IVP PRN (16:55)
[2023-11-27] MEDS ORDERED: Morphine 4 MG/ML VIAL SLOW IVP PRN (16:55)
[2023-11-27] MEDS ORDERED: Meperidine HCl/PF 25 MG (1 mL) VIAL IM PRN (16:59)
[2023-11-27] MEDS ORDERED: Communication Order-Pharmacy FS SCH (17:00)
[2023-11-27] MEDS ORDERED: TETANUS, DIPHTHERIA TOX,ADULT (TDVAX) 0.5 ML VIAL IM ONE (21:00)
[2023-11-27] MEDS: Aspirin 81 mg Enteric Coated Tablet PO SCH (21:52)
[2023-11-27] MEDS: Acetaminophen 325 MG TAB PO PRN (21:57)
[2023-11-27] MEDS: traMADol HCl 50 MG TAB PO PRN (21:57)
[2023-11-28] MEDS: CEFAZOLIN 2 GM in Sodium Chloride 0.9% 100 ML IVPB SCH (00:09)
[2023-11-28] MEDS: TETANUS AND DIPHTHERIA TOX/PF 0.5 ML DISP.SYRIN IM SCH (00:10)
[2023-11-28] MEDS: Sodium Chloride 0.9% 100 ML ONE (00:41)
[2023-11-28 04:37] LABS: #Basophils 0.03 10x3/uL (0.0-0.2); #Eosinphils Less than 0.03 10x3/uL (0.0-0.7); %Basophils 0.2 % (0.0-1.0); %Lymphocytes 5.4 % (21.0-51.0); %Monocytes 4.4 % (0.0-10.0); %Neutrophils 89.7 % (42.0-75.0); Hematocrit 37.3 % (36.0-47.0); Hemoglobin 11.8 g/dL (12.0-16.0); Mean Corpuscular HGB CONC 31.6 g/dL (32.0-36.0); Mean Corpuscular Hemoglobin 26.1 pg (27.0-31.0); Mean Corpuscular Volume 82.5 fL (78.0-98.0); Mean Platelet Volume 9.5 fL (7.4-10.4); Platelet Count 260 10x3/uL (130-400); RBC Distribution Width 15.2 % (11.5-14.5); Red Blood Cell (RBC) Count 4.52 mill/uL (4.20-5.40)
[2023-11-28] MEDS: HYDROcodone/Acetaminophen 5/325 mg Tablet PO PRN (09:17)
[2023-11-28 12:29] VITALS: TEMP 97.8
[2023-11-28 15:16] VITALS: BP 122/79
== END 2023-11-28 14:20 | disposition home or self-care (01) | DRG 513 ==
LOC: SDC 07:34 → MSONC 16:55
PROVIDERS: ADMIT Orthopaedic Surgery Hand Surgery; ATTEND Orthopaedic Surgery Hand Surgery
PROC: 0PBN0ZZ Excision of Left Carpal, Open Approach (ICD-10-PCS; principal; 2023-11-27)
PROC: 0RGP0KZ Fusion of Left Wrist Joint with Nonautologous Tissue Substitute, Open Approach (ICD-10-PCS; 2023-11-27)
PROC: 0LN80ZZ Release Left Hand Tendon, Open Approach (ICD-10-PCS; 2023-11-27)
DX: S63.8X2A Sprain of other part of left wrist and hand, initial encounter (principal); M87.838 Other osteonecrosis of left carpus; Z68.41 Body mass index [BMI] 40.0-44.9, adult; G47.00 Insomnia, unspecified; G89.29 Other chronic pain; M54.9 Dorsalgia, unspecified; J45.909 Unspecified asthma, uncomplicated; E66.01 Morbid (severe) obesity due to excess calories; M19.042 Primary osteoarthritis, left hand; F20.9 Schizophrenia, unspecified; F32.A Depression, unspecified; F41.9 Anxiety disorder, unspecified; G56.22 Lesion of ulnar nerve, left upper limb; X58.XXXA Exposure to other specified factors, initial encounter; Z96.652 Presence of left artificial knee joint; Z99.81 Dependence on supplemental oxygen; Z87.891 Personal history of nicotine dependence; Z79.899 Other long term (current) drug therapy; Z79.82 Long term (current) use of aspirin; Z79.01 Long term (current) use of anticoagulants; Z88.5 Allergy status to narcotic agent
CPT/HCPCS: 36415; 36416; 85025; 90714; C1713; C1889; C1894; J0665; J0690; J1100; J1885; J2405; J2704; J3010; J3490

== ENCOUNTER 2024-01-15 14:39 | Outpatient (CLI) | payer MEDICARE, MEDICAID ==
[2024-01-15 15:34] LABS: #Basophils 0.03 10x3/uL (0.0-0.2); %Basophils 0.3 % (0.0-1.0); %Eosinophils 2.6 % (0.0-10.0); %Lymphocytes 12.9 % (21.0-51.0); %Neutrophils 74.9 % (42.0-75.0); Hematocrit 39.6 % (36.0-47.0); Mean Corpuscular HGB CONC 32.8 g/dL (32.0-36.0); Mean Corpuscular Hemoglobin 27.4 pg (27.0-31.0); Mean Corpuscular Volume 83.4 fL (78.0-98.0); Platelet Count 277 10x3/uL (130-400); RBC Distribution Width 14.7 % (11.5-14.5); Red Blood Cell (RBC) Count 4.75 mill/uL (4.20-5.40)
[2024-01-15 15:51] LABS: Anion Gap 15 mmol/L (10-20); BUN (Urea Nitrogen) 10 mg/dL (9.8-20.1); Calc. Creatinine Clearance 0 mL/min (70-130); Calcium 9.4 mg/dL (7.8-10.44); Carbon Dioxide 27 mmol/L (22-29); Chloride 99 mmol/L (98-107); Estimated GFR 63; Glucose 103 mg/dL (70-105); Potassium 4.1 mmol/L (3.5-5.1); Sodium 137 mmol/L (136-145)
== END 2024-01-15 14:40 | disposition home or self-care (01) ==
LOC: LABBT 14:39
PROVIDERS: ATTEND Orthopaedic Surgery Hand Surgery
DX: Z01.818 Encounter for other preprocedural examination (principal); T84.84XA Pain due to internal orthopedic prosthetic devices, implants and grafts, initial encounter
CPT/HCPCS: 80048; 85025

== ENCOUNTER 2024-01-19 09:17 | Day surgery (SDC) | payer MEDICARE, MEDICAID ==
[2024-01-15 14:51] VITALS: BMI 41.3
[2024-01-19] MEDS ORDERED: Bacitracin Zinc Ointment 30 gm TUBE ONE (09:39)
[2024-01-19] MEDS ORDERED: Bupivacaine PF 0.5% 30 ML VIAL ONE (09:39)
[2024-01-19] MEDS ORDERED: PROPOFOL 20 ML ONE (09:43)
[2024-01-19] MEDS ORDERED: fentaNYL PF 100 MCG/2 ML SYRINGE ONE ×3 (09:43→13:02)
[2024-01-19] MEDS ORDERED: Lidocaine 2% PF 5 ML VIAL ONE (09:43)
[2024-01-19] MEDS ORDERED: CEFAZOLIN 2 GM VIAL ONE (10:10)
[2024-01-19] MEDS ORDERED: Dexamethasone 4 mg/ml Vial ONE (10:34)
[2024-01-19] MEDS ORDERED: Ondansetron PF 4 MG/2 ML Vial ONE (10:34)
[2024-01-19] MEDS ORDERED: CEFAZOLIN 1 GM VIAL ONE (10:38)
[2024-01-19] MEDS ORDERED: ePHEDrine Sulfate 50 MG/10 ML VIAL ONE (10:44)
[2024-01-19] MEDS ORDERED: Glycopyrrolate 0.2 MG/ML 5 ML SYRINGE ONE (10:48)
[2024-01-19] MEDS ORDERED: Promethazine HCl 25 MG/ML VIAL ONE (13:04)
[2024-01-19] MEDS ORDERED: Meperidine HCl/PF 25 MG (1 mL) VIAL ONE (13:12)
== END 2024-01-19 15:55 | disposition home or self-care (01) ==
LOC: SDC 09:17
PROVIDERS: ATTEND Orthopaedic Surgery Hand Surgery
PROC: 0LB80ZZ Excision of Left Hand Tendon, Open Approach (ICD-10-PCS; principal; 2024-01-19)
DX: T84.84XA Pain due to internal orthopedic prosthetic devices, implants and grafts, initial encounter (principal); S63.204A Unspecified subluxation of right ring finger, initial encounter; S63.8X2A Sprain of other part of left wrist and hand, initial encounter; M19.132 Post-traumatic osteoarthritis, left wrist; M87.00 Idiopathic aseptic necrosis of unspecified bone; M65.342 Trigger finger, left ring finger; M65.332 Trigger finger, left middle finger; J45.909 Unspecified asthma, uncomplicated; I12.9 Hypertensive chronic kidney disease with stage 1 through stage 4 chronic kidney disease, or unspecified chronic kidney disease; N18.9 Chronic kidney disease, unspecified; E66.9 Obesity, unspecified; B19.20 Unspecified viral hepatitis C without hepatic coma; Z68.41 Body mass index [BMI] 40.0-44.9, adult; Z96.652 Presence of left artificial knee joint; Z87.891 Personal history of nicotine dependence; Z88.5 Allergy status to narcotic agent; Z79.82 Long term (current) use of aspirin; Z79.01 Long term (current) use of anticoagulants; Z79.51 Long term (current) use of inhaled steroids; Z79.2 Long term (current) use of antibiotics; Z79.899 Other long term (current) drug therapy; X58.XXXA Exposure to other specified factors, initial encounter; Y83.1 Surgical operation with implant of artificial internal device as the cause of abnormal reaction of the patient, or of later complication, without mention of misadventure at the time of the procedure
CPT/HCPCS: 26145 ×2; 73100; A6223; J0665; J0690; J1100; J2175; J2405; J2550; J2704

== ENCOUNTER 2024-02-01 07:57 | Outpatient (CLI) | payer MEDICARE, MEDICAID | END 2024-02-01 07:58 | disposition home or self-care (01) | LOC: NM 07:57 | PROVIDERS: ATTEND Specialist | DX: T84.84XA Pain due to internal orthopedic prosthetic devices, implants and grafts, initial encounter (principal); M17.12 Unilateral primary osteoarthritis, left knee; Z96.652 Presence of left artificial knee joint; R94.8 Abnormal results of function studies of other organs and systems | CPT/HCPCS: 78315; A9503; 36415; 85025; 86140 ==

== ENCOUNTER 2025-01-25 11:52 | Emergency (ER) | payer OTHER, MEDICAID ==
[2025-01-25 12:48] LABS: #Basophils 0.03 10x3/uL (0.0-0.2); #Eosinophils Less than 0.03 10x3/uL (0.0-0.7); #Monocytes 0.32 10x3/uL (0.11-0.59); #Neutrophils 5.98 10x3/uL (1.40-6.50); %Basophils 0.4 % (0.0-1.0); %Eosinophils 0.1 % (0.0-10.0); %Lymphocytes 9.8 % (21.0-51.0); %Monocytes 4.5 % (0.0-10.0); %Neutrophils 84.9 % (42.0-75.0); Hematocrit 42.1 % (36.0-47.0); Hemoglobin 12.9 g/dL (12.0-16.0); Mean Corpuscular Hemoglobin 26.0 pg (27.0-31.0); Mean Corpuscular Volume 84.9 fL (78.0-98.0); Platelet Count 286 10x3/uL (130-400); Red Blood Cell (RBC) Count 4.96 mill/uL (4.20-5.40); White Blood Cell (WBC) Count 7.05 10x3/uL (4.8-10.8)
[2025-01-25 13:04] LABS: ALT (SGPT) 10 U/L (Less than 34); AST (SGOT) 16 U/L (11-34); Albumin 4.4 g/dL (3.1-4.5); Alkaline Phosphatase 95 U/L (40-110); Anion Gap 13 mmol/L (10-20); BUN (Urea Nitrogen) 17 mg/dL (9.8-20.1); Bilirubin, Total 0.3 mg/dL (0.3-1.2); Calc. Creatinine Clearance 0 mL/min (70-130); Calcium 9.6 mg/dL (7.8-10.44); Carbon Dioxide 29 mmol/L (23-31); Chloride 103 mmol/L (98-107); Globulin 3.5 g/dL (2.4-3.5); Glucose 112 mg/dL (80-115); Lipase 20 U/L (8-78); Magnesium 2.1 mg/dL (1.6-2.6); Potassium 4.0 mmol/L (3.5-5.1); Sodium 141 mmol/L (136-145)
[2025-01-25] MEDS ORDERED: Ondansetron PF 4 MG/2 ML Vial ONE (14:01)
[2025-01-25 16:26] LABS: Bacteria/HPF None Seen HPF (None Seen); CAUTI Indications for Culture Alt mental st,lethar; Glucose, Urine (Dipstick) Normal (Negative); Leukocyte 500 Leu/uL (Negative); Protein, Urine (Dipstick) Negative (Neg-Trace); Specific Gravity, Urine 1.025 (1.002-1.036); WBC/HPF Greater than 50 HPF (0-3)
[2025-01-25 16:29] LABS: Urine Culture Reflex Yes Yes
== END 2025-01-25 16:56 | disposition home or self-care (01) ==
LOC: ERS 11:52
DX: N20.0 Calculus of kidney (principal); N39.0 Urinary tract infection, site not specified; I12.9 Hypertensive chronic kidney disease with stage 1 through stage 4 chronic kidney disease, or unspecified chronic kidney disease; N18.9 Chronic kidney disease, unspecified; Z87.891 Personal history of nicotine dependence
CPT/HCPCS: 74177; 80053; 81001; 83690; 83735; 84484; 85025; 87086; 93005; 96374; 96375; J2405